=== PATIENT | female | born 1955 | race Caucasian/White ===

== ENCOUNTER 2020-08-02 13:55 | Outpatient (RCR) | payer OTHER, SELFPAY ==
[2020-08-02 14:05] VITALS: BP 118/82
== END 2020-08-30 14:38 | disposition other institution (70) ==
LOC: HO.PT 13:55
PROVIDERS: PCP Internal Medicine; Visit Provider Nurse Practitioner Adult Health
DX: R42 Dizziness and giddiness (principal)
CPT/HCPCS: 97112; 97161

== ENCOUNTER 2020-11-17 07:24 | Day surgery (SDC) | payer OTHER, SELFPAY ==
[2020-11-09 20:36] VITALS: BMI 24.4
--- NOTE | 2020-11-15 14:48 | HO.ANESPROP2 ---
Documented by User: Lacey Troy 11/15/20 14:49 HPI - Anesthesia Eval Consult details Narrative: 65yo F for Colonoscopy [facility] Past Medical History Medical History Asthma Diverticulosis Migraine Surgical History Surgical History H/O foot surgery (~2005) History of colonoscopy (~2014) History of hand surgery (~05/2020) History of total abdominal hysterectomy and bilateral salpingo-oophorectomy History of total knee arthroplasty (~2009) Social History Social History Patient Tobacco Use Status: Never used Tobacco Use of substances other than those prescribed or required for medical reasons: No Are you DNR?: No Advance Directives: No (UNKNOWN) Advance Directives Information Provided: Yes Advance Directives on File: No Nutrition Risks: No Nutritional Risk Patient : No Meds Allergies Allergy/AdvReac Type Severity Reaction Status Date / Time erythromycin base Allergy Intermediate HIVES, RASH Verified 11/17/20 08:01 [ERYTHROMYCIN BASE] Erythrocin Allergy Intermediate Hives Uncoded 11/17/20 08:00 Erythromycin Allergy Intermediate hives Uncoded 11/17/20 08:00 Home Medications Medication Instructions Recorded Confirmed Last Taken Type ibuprofen 1 tab PO BID PRN 11/09/20 11/09/20 Unknown History Exam Exam Date and Time: November 15, 2020 1448 Height,Weight and Vital Signs: Height 5 ft 5 in Weight 66.678 kg Assessment and Plan Assessment Anesthesia Assessment: Chart Reviewed Documented by User: Christina Dennison 11/17/20 08:01 [facility] Past Medical History Medical History Asthma Diverticulosis Migraine Family History Family history of problems with anesthesia: No Surgical History Surgical History H/O foot surgery (~2005) History of colonoscopy (~2014) History of hand surgery (~05/2020) History of total abdominal hysterectomy and bilateral salpingo-oophorectomy History of total knee arthroplasty (~2009) History of Problems with Anesthesia: Yes (PONV) Social History Social History Patient Tobacco Use Status: Never used Tobacco Use of substances other than those prescribed or required for medical reasons: No Are you DNR?: No Advance Directives: No (UNKNOWN) Advance Directives Information Provided: Yes Advance Directives on File: No Nutrition Risks: No Nutritional Risk Patient : No Meds Allergies Allergy/AdvReac Type Severity Reaction Status Date / Time erythromycin base Allergy Intermediate HIVES, RASH Verified 11/17/20 08:01 [ERYTHROMYCIN BASE] Erythrocin Allergy Intermediate Hives Uncoded 11/17/20 08:00 Erythromycin Allergy Intermediate hives Uncoded 11/17/20 08:00 Home Medications Medication Instructions Recorded Confirmed Last Taken Type ibuprofen 1 tab PO BID PRN 11/09/20 11/09/20 Unknown History Exam Height,Weight and Vital Signs: Vital Signs Temp Pulse Resp BP Pulse Ox 11/17/20 07:47 97.3 F 74 18 124/73 97 Airway Mallampati Class: II TM Dist: >3cm Neck ROM: Full Heart: RRR Lungs: CTAB Assessment and Plan Assessment Anesthesia Assessment: Anesthesia Plan Discussed and Chart Reviewed Final Anesthetic Review NPO: Yes ASA Class: II Final Preanesthetic Review: No Changes in Pt Med Stat, Meds/Allgs Chart Reviewed, Consent Obtained/Reviewed and Anes Risks/Benef Reviewed Patient Risk: Low Procedure Risk: Low Assessment/Block/Sedation in SS: Assess/Block/Sedation-SS Anesthetic Plan Anesthetic Plan: MAC: Disposition: Standard PACU
[2020-11-17 07:47] VITALS: BP 124/73; PULSE 74; RESP 18; TEMP 36.3; O2SAT 97
[2020-11-17] MEDS: Lactated Ringers 1,000 ML 100 ML IVCONT (08:02)
--- NOTE | 2020-11-17 08:06 | MHC.SHP ---
Pre-Procedural Eval Section B Chief Complaint: screening Details of Present Illness: see H&P no changes Relevant Family History (Specify if Yes): No Relevant Social History: None Present Medications: see Short Stay Collaborative assessment Medical History: No relevant PMH History of Previous Operations: No relevant previous surgery Allergies: Allergies Allergy/AdvReac Type Severity Reaction Status Date / Time erythromycin base Allergy Intermediate HIVES, RASH Verified 11/17/20 08:01 [ERYTHROMYCIN BASE] Erythrocin Allergy Intermediate Hives Uncoded 11/17/20 08:00 Erythromycin Allergy Intermediate hives Uncoded 11/17/20 08:00 Review of Systems Sugical H&P ROS: Negative: Constitution, Cardiovascular, Respiratory, Neurological, Psychiatric, Hem-Onc, Allergic/Immunologic, Gastrointestinal, Genitourinary, Musculoskeletal, Integumentary, Endocrine and Eyes/Ears/Nose/Throat Exam Surgical H&P Exam: Normal: HEENT, Normal: Heart, Normal: Lungs, Normal: Extremities, Normal: Abdomen, Normal: Skin and Normal: Neurological Plan Diagnosis/Plan: Unchanged I have reviewed the history and physical and performed a pertinent physical examination on my patient. No changes have occurred unless specified.
--- NOTE | 2020-11-17 08:41 | PM.OP ---
Brief Operative Note Date of Service: 11/17/20 Pre-op diagnosis: screening Post-op diagnosis: same Procedure: colonoscopy Surgeon: Frank Suarez Anesthesia: MAC Was an Environmental Designer used for this Procedure?: No Estimated blood loss (mL): 0 Pathology: none sent Condition: stable Disposition: PACU
[2020-11-17 08:44] VITALS: BP 89/42; PULSE 71; RESP 14; TEMP 36.7; O2SAT 98
[2020-11-17 08:59] VITALS: BP 94/57; PULSE 70; RESP 18; O2SAT 99
--- NOTE | 2020-11-17 09:01 | OP_ITS ---
SURGEON: Frank Suarez MD INDICATIONS: Colon cancer screening, personal history of colon polyps, and family history of colon cancer. PREOPERATIVE DIAGNOSIS: POSTOPERATIVE DIAGNOSIS: PROCEDURE PERFORMED: Colonoscopy to the terminal ileum. ESTIMATED BLOOD LOSS: COMPLICATIONS: ANESTHESIA: ASSISTANTS: SPECIMENS: MEDICATIONS: Monitored anesthesia care. DESCRIPTION OF PROCEDURE: The history and physical performed. The risks and benefits of the procedure were explained to the patient. Informed consent was obtained. The patient was placed in the left lateral decubitus position. A digital rectal exam was performed and was found to be normal. The Olympus pediatric video colonoscope was introduced into the rectum and advanced to the cecum without difficulty. The cecum was identified by transillumination, palpation, and identification of ileocecal valve. Examination was performed and the scope was removed. She tolerated the procedure well and was taken to recovery area in stable condition. FINDINGS: The terminal ileum was normal. The visualized colonic mucosa was within normal limits without evidence of masses or ulcers. No polyps were identified. The quality of prep was good. Retroflexed examination showed some small internal hemorrhoids. There was mild sigmoid diverticulosis. IMPRESSION: Normal colonoscopy. RECOMMENDATION: 1. Follow up as needed. 2. Repeat colonoscopy is recommended in 5 years because of family history. MD ALEJANDRA Rodas/ANDREYL / [phone]
[2020-11-17 09:05] VITALS: BP 104/63; PULSE 68; RESP 16; O2SAT 99
== END 2020-11-17 09:33 | disposition home or self-care (01) ==
PROVIDERS: PCP Internal Medicine; Visit Provider Internal Medicine Gastroenterology
PROC: 0DJD8ZZ Inspection of Lower Intestinal Tract, Via Natural or Artificial Opening Endoscopic (ICD-10-PCS; CPT 45378; principal; 2020-11-17 08:20)
DX: Z12.11 Encounter for screening for malignant neoplasm of colon (principal); Z86.010 Personal history of colon polyps; Z80.0 Family history of malignant neoplasm of digestive organs; K57.30 Diverticulosis of large intestine without perforation or abscess without bleeding; K64.8 Other hemorrhoids; J45.909 Unspecified asthma, uncomplicated; Z79.1 Long term (current) use of non-steroidal anti-inflammatories (NSAID); Z88.1 Allergy status to other antibiotic agents
CPT/HCPCS: 45378; J2250

== ENCOUNTER 2021-03-08 09:46 | Outpatient (REF) | payer OTHER, SELFPAY ==
[2021-03-08 11:56] LABS: Alanine Aminotransferase 22 U/L (0-31); Albumin Level 4.5 g/dL (3.5-5.0); Alkaline Phosphatase 69 U/L (39-117); Anion Gap 11 (12-20); Aspartate Amino Transferase 20 U/L (5-31); Bilirubin Total 0.3 mg/dL (0.0-1.0); Blood Urea Nitrogen 13 mg/dL (9-16); Calcium 9.7 mg/dL (8.4-10.2); Carbon Dioxide 28 mmol/L (22-29); Chloride 106 mmol/L (96-108); Cholesterol 169 mg/dL; Estimated Glomerular Filt Rate > 60; Glucose Random 104 mg/dL (60-115); HDL Cholesterol 65 mg/dL; LDL Cholesterol Calculated 94 mg/dl; Sodium 140 mmol/L (135-145); Total Protein 7.2 g/dL (6.5-8.0); Triglycerides 53 mg/dL
== END 2021-03-08 09:47 | disposition home or self-care (01) ==
LOC: HO.HMGCLDS 09:46
PROVIDERS: PCP Internal Medicine; Visit Provider Nurse Practitioner Adult Health
DX: Z00.00 Encounter for general adult medical examination without abnormal findings (principal)
CPT/HCPCS: 36415; 80053; 80061

== ENCOUNTER 2021-05-04 14:06 | Outpatient (REF) | payer OTHER, SELFPAY ==
--- NOTE | ~2021-05-04 | MM_ITS ---
EXAMINATION: MM SCREENING DIGITAL BREAST TOMOSYNTHESIS, BILATERAL CLINICAL INFORMATION: Screening. Asymptomatic. The lifetime risk of breast cancer based on the Tyrer-Cuzick Model is 10%. COMPARISON: Mammography: 05/19/2019, 05/30/2016, 04/25/2015 TECHNIQUE: Digital breast tomosynthesis is performed in both the craniocaudal and mediolateral oblique views along with computer-aided detection (CAD). Synthesized 2D images are generated from the tomosynthesis. FINDINGS: There are scattered areas of fibroglandular density (ACR BI-RADS breast composition Category b). The right breast is unremarkable. There is no interval mass or architectural abnormality. Neither breast shows abnormal calcifications. The skin contours are smooth. There is a clip marker again seen right breast mid upper outer quadrant. Left breast has a 0.4 cm nodule posterior 3:00 position representing change from prior studies. Patient will be recalled to further characterize, possibly an intramammary node. MM/MM tomosynthesis screening BI IMPRESSION: 1. Left: 4 mm nodule posterior 3:00 position. 2. Right: No mammographic evidence of malignancy. ASSESSMENT: BI-RADS 0: Incomplete - Need Additional Imaging Evaluation RECOMMENDATION: 1. Additional views of the left breast (small spot CC, small spot MLO). 2. Targeted ultrasound if warranted after review of the additional views. 3. Radiology department staff will contact the patient for additional imaging. This patient's information was entered into a reminder system with a target due date for their next mammogram.
--- NOTE | ~2021-05-04 | MM_ITS ---
EXAMINATION: BONE DENSITOMETRY CLINICAL INDICATION: Postmenopausal. COMPARISON: None (current study represents initial baseline exam). TECHNIQUE: Using a [employer] DXA System (software version: 13.1) manufactured by [employer], dual-energy x-ray absorptiometry was performed of the lumbar spine and left hip. The images are of good technical quality. Summary results are attached. FINDINGS: AP SPINE L1-L4: BMD 1.131 g/cm2, Z-score 1.2, T-score -0.4, normal. LEFT FEMUR, NECK: BMD 0.902 g/cm2, Z-score 0.5, T-score -1.0, normal. LEFT FEMUR, TOTAL: BMD 0.966 g/cm2, Z-score 0.9, T-score -0.3, normal. IDENTIFIED RISK FACTORS: Low calcium intake, menopause, hysterectomy, bilateral oophorectomy. HISTORY OF FRACTURE: None listed. MEDICATIONS: None listed. MM/XR DEXA axial skeleton IMPRESSION: 1. DIAGNOSIS: Normal bone density based on the lowest T-score value of -1.0 in the femoral neck applying World Health Organization criteria. 2. 10-YEAR FRACTURE RISK PREDICTION, FRAX: Major osteoporotic fracture (clinical spine, forearm, hip or shoulder) 7.9%. Hip fracture 0.6%. 3. Treatment Recommendations: NOF guidelines recommend consideration for treatment in postmenopausal women and men age 50 and older presenting with the following: -A hip or vertebral (clinical or morphometric) fracture. -T-score less than or equal to -2.5 at the femoral neck or spine after appropriate evaluation to exclude secondary causes. -Low bone mass at the hip or spine and a 10-year fracture probability by FRAX of greater than or equal to 3% for hip fracture or greater than or equal to 20% for major osteoporotic fracture based on the [place] adapted WHO algorithm. 4. Other Recommendations: All treatment decisions require clinical judgment and consideration of individual patient factors, including patient preferences, comorbidities, previous drug use, risk factors not captured in the FRAX model (e.g. frailty, falls, vitamin D deficiency, increased bone turnover, interval significant decline in bone density) and possible under or overestimation of fracture risk by FRAX. FUTURE SCAN RECOMMENDATION: People with diagnosed cases of osteoporosis or at high risk for fracture should have regular bone mineral density tests. For patients eligible for Medicare, routine testing is allowed once every 2 years. The testing frequency can be increased to one year for patients who have rapidly progressing disease, those who are receiving or discontinuing medical therapy to restore bone mass, or have additional risk factors.
== END 2021-05-04 14:07 | disposition home or self-care (01) ==
LOC: HO.MAMMO 14:06
PROVIDERS: Visit Provider Internal Medicine
DX: Z12.31 Encounter for screening mammogram for malignant neoplasm of breast (principal); Z13.820 Encounter for screening for osteoporosis; N95.9 Unspecified menopausal and perimenopausal disorder; Z78.0 Asymptomatic menopausal state; Z98.890 Other specified postprocedural states; Z90.710 Acquired absence of both cervix and uterus
CPT/HCPCS: 77063; 77067; 77080

== ENCOUNTER 2021-05-17 12:26 | Outpatient (REF) | payer OTHER, SELFPAY ==
--- NOTE | ~2021-05-17 | MM_ITS ---
EXAMINATION: MM DIAGNOSTIC DIGITAL BREAST TOMOSYNTHESIS, LEFT US DIAGNOSTIC ULTRASOUND BREAST, LEFT CLINICAL INFORMATION: Recall from screening for 4 mm nodule posterior 3:00 position left breast. COMPARISON: Mammography: 05/04/2021, 05/19/2019 TECHNIQUE: Digital breast tomosynthesis is performed. 2D images are generated from the tomosynthesis. The following views are obtained: Spot CC, spot MLO. Ultrasound left breast is targeted to the posterior upper outer quadrant. Grayscale imaging and color Doppler are performed without and with harmonics. FINDINGS: There are scattered areas of fibroglandular density (ACR BI-RADS breast composition Category b). The additional views show the focal nodular asymmetric density to be less conspicuous. There is no spiculation. Ultrasound left breast demonstrates a circumscribed 0.4 x 0.3 cm hypoechoic nodule with suggestion of fine avascular internal septation and trace increased through-transmission of sound. This is believed to represent the finding on mammography. Results are discussed with the patient at time of visit. Management options discussed with patient. The nodular asymmetric density appears circumscribed and likely mildly complicated cyst on ultrasound. Patient is in agreement with short interval follow-up imaging in 6 months. Management plan is for six-month follow-up diagnostic mammography. Targeted left breast ultrasound may also be performed at same visit of warranted. MM/MM tomosynthesis added views L IMPRESSION: Probable benign mildly complicated cyst posterior upper outer left breast. ASSESSMENT: BI-RADS 3: Probably Benign RECOMMENDATION: Diagnostic left mammography in 6 months. This patient's information was entered into a reminder system with a target due date for their next mammogram.
== END 2021-05-17 12:27 | disposition home or self-care (01) ==
LOC: HO.MAMMO 12:26
PROVIDERS: Visit Provider Internal Medicine
DX: N63.25 Unspecified lump in the left breast, overlapping quadrants (principal)
CPT/HCPCS: 76642; 77061; 77065

== ENCOUNTER 2021-07-06 08:00 | Outpatient (REF) | payer OTHER, SELFPAY ==
[2021-07-06 09:58] LABS: Influenza A PCR NEGATIVE (Negative); Influenza B PCR NEGATIVE (Negative); Resp Syncy Virus RNA Qual PCR NEGATIVE (Negative); SARS COV2 PCR INHOUSE NEGATIVE (Negative)
== END 2021-07-06 08:01 | disposition home or self-care (01) ==
LOC: HO.LAB 08:00
PROVIDERS: Visit Provider Internal Medicine
DX: Z20.822 Contact with and (suspected) exposure to COVID-19 (principal)
CPT/HCPCS: 0241U; C9803

== ENCOUNTER → 2021-10-16 10:23 | Outpatient (RCR) | payer OTHER, SELFPAY | END | disposition home or self-care (01) | LOC: HO.OT 06-27 09:49 | PROVIDERS: Visit Provider Orthopaedic Surgery | DX: Z98.890 Other specified postprocedural states (principal) | CPT/HCPCS: 29130; 97014; 97110; 97140; 97165; 97530; 97760 ==

== ENCOUNTER 2022-01-23 13:46 | Outpatient (REF) | payer OTHER, SELFPAY ==
--- NOTE | ~2022-01-23 | MM_ITS ---
EXAMINATION: MM DIAGNOSTIC DIGITAL BREAST TOMOSYNTHESIS, LEFT CLINICAL INFORMATION: Short interval follow-up probable benign nodule posterior 3:00 left breast. The lifetime risk of breast cancer based on the Tyrer-Cuzick Model is 9%. COMPARISON: Mammography: 05/17/2021, 05/04/2021 (BI-RADS 0), 05/19/2019, ultrasound left breast 05/17/2021. TECHNIQUE: Digital breast tomosynthesis is performed in both the craniocaudal and mediolateral oblique views along with computer-aided detection (CAD). Synthesized 2D images are generated from the tomosynthesis. FINDINGS: There are scattered areas of fibroglandular density (ACR BI-RADS breast composition Category b). The nodule posterior 3:00 left breast is decreased in size and no longer clearly visible consistent with the probable benign assessment on prior imaging. Left breast will be reassessed again at time of annual bilateral mammography, due in 6 months. Remainder left breast is unremarkable. No significant changes. Results are provided to the patient at time of visit by the technologist. MM/MM tomosynthesis diagnostic LT IMPRESSION: Nodule posterior outer left breast is decreased in size and no longer clearly visible. ASSESSMENT: BI-RADS 3: Probably Benign RECOMMENDATION: Diagnostic mammography at time of annual bilateral exam, due in 6 months. This patient's information was entered into a reminder system with a target due date for their next mammogram.
== END 2022-01-23 13:47 | disposition home or self-care (01) ==
LOC: HO.MAMMO 13:46
PROVIDERS: Visit Provider Internal Medicine
DX: N63.25 Unspecified lump in the left breast, overlapping quadrants (principal)
CPT/HCPCS: 77061; 77065

== ENCOUNTER 2022-06-04 09:55 | Day surgery (SDC) | payer OTHER, SELFPAY ==
--- NOTE | 2022-06-03 10:27 | HO.ANESPROP2 ---
Documented by User: Lacey Troy NP 06/03/22 10:27 HPI - Anesthesia Eval Consult details Narrative: 66yo F for Upper Endoscopy [facility] [place] Past Medical History Medical History Asthma Diverticulosis Migraine Family History Family history of problems with anesthesia: No Surgical History Surgical History H/O foot surgery (~2005) History of colonoscopy (~2014) History of hand surgery (~05/2020) History of total abdominal hysterectomy and bilateral salpingo-oophorectomy History of total knee arthroplasty (~2009) History of Problems with Anesthesia: Yes (PONV) Social History Social History Patient Tobacco Use Status: Never used Tobacco Are you DNR?: No Advance Directives: No Advance Directives Information Provided: Yes Nutrition Risks: No Nutritional Risk Meds Allergies Allergy/AdvReac Type Severity Reaction Status Date / Time erythromycin base Allergy Intermediate HIVES, RASH Verified 06/04/22 10:24 [ERYTHROMYCIN BASE] Home Medications Medication Instructions Recorded Confirmed Last Taken Type ibuprofen 800 mg tablet 1 tab PO BID PRN Pain 11/09/20 06/04/22 Unknown History Exam Exam Date and Time: June 03, 2022 102 Assessment and Plan Assessment Anesthesia Assessment: Chart Reviewed Final Anesthetic Review Family History of Problems with Anesthesia: No History of Problems with Anesthesia: Yes (PONV) Documented by User: Christina Dennison MD 06/04/22 12:42 [facility] Past Medical History Medical History Asthma Diverticulosis Migraine Surgical History Surgical History H/O foot surgery (~2005) History of colonoscopy (~2014) History of hand surgery (~05/2020) History of total abdominal hysterectomy and bilateral salpingo-oophorectomy History of total knee arthroplasty (~2009) Social History Social History Patient Tobacco Use Status: Never used Tobacco Are you DNR?: No Advance Directives: No Advance Directives Information Provided: Yes Nutrition Risks: No Nutritional Risk Meds Allergies Allergy/AdvReac Type Severity Reaction Status Date / Time erythromycin base Allergy Intermediate HIVES, RASH Verified 06/04/22 10:24 [ERYTHROMYCIN BASE] Home Medications Medication Instructions Recorded Confirmed Last Taken Type ibuprofen 800 mg tablet 1 tab PO BID PRN Pain 11/09/20 06/04/22 Unknown History Exam Height,Weight and Vital Signs: Height 5 ft 5 in Weight 66.678 kg T 97.3 HR74 RR18 BP115/75 Sats 99%(RA) Airway Mallampati Class: II TM Dist: >3cm Neck ROM: Full Loose/Missing/Broken Teeth: No Heart: RRR Lungs: CTAB Assessment and Plan Assessment Anesthesia Assessment: Anesthesia Plan Discussed Final Anesthetic Review NPO: Yes ASA Class: II Final Preanesthetic Review: No Changes in Pt Med Stat, Meds/Allgs Chart Reviewed, Consent Obtained/Reviewed and Anes Risks/Benef Reviewed Patient Risk: Low Procedure Risk: Low Assessment/Block/Sedation in SS: Assess/Block/Sedation-SS Anesthetic Plan Anesthetic Plan: MAC: Disposition: Standard PACU
[2022-06-04 10:14] VITALS: BMI 24.4
[2022-06-04] MEDS: Lactated Ringers 1,000 ML 100 ML IVCONT (10:38)
--- NOTE | 2022-06-04 11:47 | MHC.SHP ---
Pre-Procedural Eval Section A Date of Service: 06/04/22 Section B Chief Complaint: reflux disease Details of Present Illness: see H*P and addendum Relevant Family History (Specify if Yes): No Relevant Social History: None Present Medications: see Short Stay Collaborative assessment Medical History: No relevant PMH History of Previous Operations: No relevant previous surgery Allergies: Allergies Allergy/AdvReac Type Severity Reaction Status Date / Time erythromycin base Allergy Intermediate HIVES, RASH Verified 06/04/22 10:24 [ERYTHROMYCIN BASE] Review of Systems Sugical H&P ROS: Negative: Constitution, Cardiovascular, Respiratory, Neurological, Psychiatric, Hem-Onc, Allergic/Immunologic, Gastrointestinal, Genitourinary, Musculoskeletal, Integumentary, Endocrine and Eyes/Ears/Nose/Throat Exam Surgical H&P Exam: Normal: HEENT, Normal: Heart, Normal: Lungs, Normal: Extremities, Normal: Abdomen, Normal: Skin and Normal: Neurological Plan Diagnosis/Plan: Unchanged I have reviewed the history and physical and performed a pertinent physical examination on my patient. No changes have occurred unless specified. Time Spent With Patient Time: Total time managing care of this patient today ____ minutes.
--- NOTE | 2022-06-04 12:29 | PM.OP ---
Brief Operative Note Date of Service: 06/04/22 Pre-op diagnosis: GERD Post-op diagnosis: same Procedure: EGD Surgeon: Frank Suarez Anesthesia: MAC Was an Virtual Classroom Manager used for this Procedure?: No Estimated blood loss (mL): 5 Pathology: other Condition: stable Disposition: PACU
[2022-06-04 12:31] VITALS: BP 118/94; PULSE 76; RESP 16; TEMP 36.3; O2SAT 98
--- NOTE | 2022-06-04 12:45 | OP_ITS ---
SURGEON: Frank Suarez MD INDICATIONS: Gastroesophageal reflux disease. PREOPERATIVE DIAGNOSIS: POSTOPERATIVE DIAGNOSIS: PROCEDURE PERFORMED: Upper endoscopy with biopsy. ESTIMATED BLOOD LOSS: COMPLICATIONS: ANESTHESIA: Monitored anesthesia care. ASSISTANTS: SPECIMENS: DESCRIPTION OF PROCEDURE: The procedure was performed on 06/04/2022. A history and physical were performed. The risks and benefits of the procedure were explained to the patient. Informed consent was obtained. The patient was placed in the left lateral decubitus position. The Olympus video gastroscope was introduced into the esophagus, stomach, and duodenum. Examination was performed. The scope was removed. She tolerated the procedure well and was returned to the recovery area in stable condition. FINDINGS: Esophagus: The esophagus appeared normal. There was no esophagitis. There was an approximately 4 cm hiatal hernia. Biopsies were obtained from the EG junction. Stomach the stomach showed several less than 5 mm benign-appearing polyps in the body and fundus. Two of these were biopsied. Antral biopsies were also obtained to rule out H pylori. Duodenum: The bulb and second portion were normal. IMPRESSION: 1. Gastroesophageal reflux disease. 2. Gastric polyps. 3. Hiatal hernia. RECOMMENDATION: Follow up the biopsy results. MD ALEJANDRA Rodas/JOSE / [id number]
[2022-06-04 12:46] VITALS: BP 132/86; PULSE 69; RESP 16; TEMP 36.3; O2SAT 97
== END 2022-06-04 13:22 | disposition home or self-care (01) ==
PROVIDERS: PCP Internal Medicine; Visit Provider Internal Medicine Gastroenterology
PROC: 0DJ08ZZ Inspection of Upper Intestinal Tract, Via Natural or Artificial Opening Endoscopic (ICD-10-PCS; CPT 43235; principal; 2022-06-04 11:40)
DX: K21.9 Gastro-esophageal reflux disease without esophagitis (principal); K31.7 Polyp of stomach and duodenum; K44.9 Diaphragmatic hernia without obstruction or gangrene; J45.909 Unspecified asthma, uncomplicated; Z79.1 Long term (current) use of non-steroidal anti-inflammatories (NSAID); Z88.1 Allergy status to other antibiotic agents
CPT/HCPCS: 43239; 88305; 88342; J2250

== ENCOUNTER 2022-07-02 14:39 | Outpatient (REF) | payer MEDICARE, SELFPAY ==
--- NOTE | ~2022-07-02 | MM_ITS ---
EXAMINATION: MM DIAGNOSTIC DIGITAL BREAST TOMOSYNTHESIS, BILATERAL CLINICAL INFORMATION: Due for yearly. Also follow-up probable benign nodule posterior 2:30 left breast. The lifetime risk of breast cancer based on the Tyrer-Cuzick Model is 7%. COMPARISON: Mammography: 01/23/2022, 05/17/2021, 05/04/2021 (BI-RADS 0), 05/19/2019; left breast ultrasound 05/17/2021. TECHNIQUE: Digital breast tomosynthesis is performed in both the craniocaudal and mediolateral oblique views along with computer-aided detection (CAD). Synthesized 2D images are generated from the tomosynthesis. FINDINGS: There are scattered areas of fibroglandular density (ACR BI-RADS breast composition Category b). The small nodule posterior 2:30 left breast for follow-up is decreased in size since initial diagnostic exam 05/17/2021 and without significant change from prior exam 01/23/2022. There is no developing density or architectural abnormality. The remainder of the bilateral breasts show no significant changes from prior studies. No abnormal calcifications. The axilla and skin contours are unremarkable. Results are provided to the patient at time of visit by the technologist. Left breast nodule will be reassessed again at time of next bilateral annual mammography to conclude long-term surveillance. MM/MM tomosynthesis diagnostic BI IMPRESSION: Left: -Tiny nodule for follow-up decreased in size from initial diagnostic exam. No developing density. Right: -No significant changes from prior studies. ASSESSMENT: BI-RADS 3: Probably Benign RECOMMENDATION: Diagnostic mammography at time of next annual exam, due in 12 months. This patient's information was entered into a reminder system with a target due date for their next mammogram.
== END 2022-07-02 14:40 | disposition home or self-care (01) ==
LOC: HO.MAMMO 14:39
PROVIDERS: PCP Internal Medicine; Visit Provider Internal Medicine
DX: R92.8 Other abnormal and inconclusive findings on diagnostic imaging of breast (principal)
CPT/HCPCS: 77062; 77066

== ENCOUNTER 2022-09-10 06:28 | Day surgery (SDC) | payer MEDICARE, SELFPAY ==
--- NOTE | 2022-09-09 13:54 | HO.ANESPROP2 ---
Documented by User: Lacey Troy NP 09/09/22 13:54 HPI - Anesthesia Eval Consult details Narrative: 66yo F for Upper Endoscopy s/p EGD 05/2022 with [facility]ILA Past Medical History Medical History Asthma Diverticulosis Migraine Family History Family history of problems with anesthesia: No Surgical History Surgical History H/O foot surgery (~2005) History of colonoscopy (~2014) History of hand surgery (~05/2020) History of total abdominal hysterectomy and bilateral salpingo-oophorectomy History of total knee arthroplasty (~2009) History of Problems with Anesthesia: Yes (PONV) Social History Social History Patient Tobacco Use Status: Never used Tobacco Use of substances other than those prescribed or required for medical reasons: No Are you DNR?: No Advance Directives: No Advance Directives Information Provided: Yes Meds Allergies Allergy/AdvReac Type Severity Reaction Status Date / Time erythromycin base Allergy Intermediate HIVES, RASH Verified 09/10/22 06:39 [ERYTHROMYCIN BASE] Home Medications Medication Instructions Recorded Confirmed Last Taken Type ibuprofen 800 mg tablet 1 tab PO BID PRN Pain 11/09/20 09/10/22 Unknown History albuterol sulfate 90 mcg/actuation 2 puff inhalation Q6H PRN wheezing 09/10/22 09/10/22 Unknown History aerosol inhaler omeprazole 20 mg capsule,delayed 20 mg PO QAM 09/10/22 09/10/22 08/20/22 History release Exam Exam Date and Time: September 09, 2022 1354 Assessment and Plan Assessment Anesthesia Assessment: Chart Reviewed Final Anesthetic Review Family History of Problems with Anesthesia: No History of Problems with Anesthesia: Yes (PONV) Documented by User: Christina Dennison MD 09/10/22 07:49 PMF Past Medical History Medical History Asthma Diverticulosis Migraine Surgical History Surgical History H/O foot surgery (~2005) History of colonoscopy (~2014) History of hand surgery (~05/2020) History of total abdominal hysterectomy and bilateral salpingo-oophorectomy History of total knee arthroplasty (~2009) Social History Social History Patient Tobacco Use Status: Never used Tobacco Use of substances other than those prescribed or required for medical reasons: No Are you DNR?: No Advance Directives: No Advance Directives Information Provided: Yes Meds Allergies Allergy/AdvReac Type Severity Reaction Status Date / Time erythromycin base Allergy Intermediate HIVES, RASH Verified 09/10/22 06:39 [ERYTHROMYCIN BASE] Home Medications Medication Instructions Recorded Confirmed Last Taken Type ibuprofen 800 mg tablet 1 tab PO BID PRN Pain 11/09/20 09/10/22 Unknown History albuterol sulfate 90 mcg/actuation 2 puff inhalation Q6H PRN wheezing 09/10/22 09/10/22 Unknown History aerosol inhaler omeprazole 20 mg capsule,delayed 20 mg PO QAM 09/10/22 09/10/22 08/20/22 History release Exam Height,Weight and Vital Signs: Height 5 ft 5 in Weight 68.039 kg Vital Signs Temp Pulse Resp BP Pulse Ox O2 Del Method 09/10/22 06:52 97.6 F 76 16 116/82 98 Room Air Airway Mallampati Class: II TM Dist: >3cm Neck ROM: Full Loose/Missing/Broken Teeth: No ([place] top left intact. Denies broken, loose, missing teeth) Heart: RRR Lungs: CTAB Assessment and Plan Assessment Anesthesia Assessment: Anesthesia Plan Discussed Final Anesthetic Review NPO: Yes ASA Class: II Final Preanesthetic Review: No Changes in Pt Med Stat, Meds/Allgs Chart Reviewed, Consent Obtained/Reviewed and Anes Risks/Benef Reviewed Patient Risk: Low Procedure Risk: Low Assessment/Block/Sedation in SS: Assess/Block/Sedation-SS Anesthetic Plan Anesthetic Plan: MAC: Disposition: Standard PACU
[2022-09-10 06:41] VITALS: BMI 25.0
[2022-09-10 06:52] VITALS: BP 116/82; PULSE 76; RESP 16; TEMP 36.4; O2SAT 98
[2022-09-10] MEDS: Lactated Ringers 1,000 ML 100 ML IVCONT (07:04)
[2022-09-10 07:57] VITALS: BP 106/69; PULSE 77; RESP 16; TEMP 36.2; O2SAT 95
[2022-09-10 08:12] VITALS: BP 116/70; PULSE 75; RESP 18; TEMP 36.1; O2SAT 97
--- NOTE | 2022-09-10 08:13 | P.BOP_ITS ---
Brief Operative Note Date of Service: 09/10/22 Pre-op diagnosis: gim Post-op diagnosis: same Procedure: egd Surgeon: Frank Suarez Anesthesia: MAC Was an Patient Financial Specialist used for this Procedure?: No Estimated blood loss (mL): 2 Pathology: other Condition: stable Disposition: PACU
--- NOTE | 2022-09-10 08:13 | MHC.SHP ---
Pre-Procedural Eval Section A Date of Service: 09/10/22 Section B Chief Complaint: Gastric intestinal metaplasia, unspecified Details of Present Illness: see H*P no changes Relevant Social History: None Present Medications: see Short Stay Collaborative assessment Medical History: No relevant PMH Allergies: Allergies Allergy/AdvReac Type Severity Reaction Status Date / Time erythromycin base Allergy Intermediate HIVES, RASH Verified 09/10/22 06:39 [ERYTHROMYCIN BASE] Review of Systems Sugical H&P ROS: Negative: Constitution, Cardiovascular, Respiratory, Neurological, Psychiatric, Hem-Onc, Allergic/Immunologic, Gastrointestinal, Genitourinary, Musculoskeletal, Integumentary, Endocrine and Eyes/Ears/Nose/Throat Exam Surgical H&P Exam: Normal: HEENT, Normal: Heart, Normal: Lungs, Normal: Extremities, Normal: Abdomen, Normal: Skin and Normal: Neurological Plan Diagnosis/Plan: Unchanged I have reviewed the history and physical and performed a pertinent physical examination on my patient. No changes have occurred unless specified. Time Spent With Patient Time: Total time managing care of this patient today ____ minutes.
--- NOTE | 2022-09-10 08:25 | OP_ITS ---
DATE OF SERVICE: 09/10/2022 SURGEON: Frank Suarez MD INDICATIONS: Gastric intestinal metaplasia. PREOPERATIVE DIAGNOSIS: POSTOPERATIVE DIAGNOSIS: PROCEDURE PERFORMED: Upper endoscopy with biopsy. ESTIMATED BLOOD LOSS: COMPLICATIONS: ANESTHESIA: Monitored anesthesia care. ASSISTANTS: SPECIMENS: DESCRIPTION OF PROCEDURE: A history and physical were performed. The risks and benefits of the procedure were explained to the patient. Informed consent was obtained. The patient was placed in the left lateral decubitus position. The Olympus video gastroscope was introduced into the esophagus, stomach, and duodenum. Examination was performed. The scope was removed. She tolerated the procedure well and was returned to recovery in stable condition. FINDINGS: Esophagus: The esophagus was normal. Stomach: The stomach showed no evidence of masses or ulcers. Biopsies were obtained throughout the stomach to assess for degree of gastric intestinal metaplasia. There was no ulcer or erythema. Duodenum: The bulb and 2nd portion were normal. IMPRESSION: Gastric intestinal metaplasia. RECOMMENDATION: Follow up the biopsy results. MD ALEJANDRA Rodas/ANDREYL / [id number]
== END 2022-09-10 08:49 | disposition home or self-care (01) ==
PROVIDERS: PCP Internal Medicine; Visit Provider Internal Medicine Gastroenterology
PROC: 0DJ08ZZ Inspection of Upper Intestinal Tract, Via Natural or Artificial Opening Endoscopic (ICD-10-PCS; CPT 43235; principal; 2022-09-10 07:30)
DX: K29.50 Unspecified chronic gastritis without bleeding (principal); K31.A0 Gastric intestinal metaplasia, unspecified; Z80.0 Family history of malignant neoplasm of digestive organs; J45.909 Unspecified asthma, uncomplicated; G43.909 Migraine, unspecified, not intractable, without status migrainosus; Z79.1 Long term (current) use of non-steroidal anti-inflammatories (NSAID); Z88.1 Allergy status to other antibiotic agents
CPT/HCPCS: 43239; 88305; 88342; J2250

== ENCOUNTER 2023-08-19 11:11 | Outpatient (REF) | payer MEDICARE, SELFPAY ==
--- NOTE | ~2023-08-19 | MM_ITS ---
EXAMINATION: MM DIAGNOSTIC DIGITAL BREAST TOMOSYNTHESIS, BILATERAL CLINICAL INFORMATION: Patient due for screening bilaterally. Short interval follow-up probably benign nodule posterior 3:00 left breast. COMPARISON: Mammography: 07/02/2022, 01/23/2022, 05/17/2021, 05/04/2021 (BI-RADS 0), 05/19/2019; left breast ultrasound 05/17/2021. TECHNIQUE: Digital breast tomosynthesis is performed in both the craniocaudal and mediolateral oblique views along with computer-aided detection (CAD). Synthesized 2D images are generated from the tomosynthesis. In addition to standard views, a full-field left 90 degree 3-D mediolateral view was also obtained. FINDINGS: There are scattered areas of fibroglandular density (ACR BI-RADS breast composition Category b). There is a surgical clip in the right breast upper outer quadrant middle one third, benign. There is a benign-appearing lymph node in the right axillary tail. The tiny 3 mm nodule in the 3:00 axis of the left breast is even less conspicuous than previously in 2022, correlating with a minimally complicated cyst seen on prior ultrasound of 2020. This finding has been stable over 2 years and is considered benign. There are no suspicious masses, suspicious grouped calcifications, or areas of architectural distortion in either breast. The parenchymal pattern is stable from prior exams. No axillary or skin findings are noted. MM/MM tomosynthesis diagnostic BI IMPRESSION: There are no findings suspicious for malignancy in either breast. There are stable benign findings, including the 3 mm left breast nodule at 3:00. Recommend the patient resume routine annual screening to include both breasts. ASSESSMENT: BI-RADS BI-RADS 2 - Benign Findings RECOMMENDATION: 1 year F/U Results were provided to the patient at time of visit by the technologist. This patient's information was entered into a reminder system with a target due date for their next mammogram.
== END 2023-08-19 11:12 | disposition home or self-care (01) ==
LOC: HO.MAMMO 11:11
PROVIDERS: PCP Internal Medicine; Visit Provider Nurse Practitioner Adult Health
DX: R92.8 Other abnormal and inconclusive findings on diagnostic imaging of breast (principal)
CPT/HCPCS: 77062; 77066

== ENCOUNTER → 2023-08-19 11:30 | Outpatient (BNV) | payer MEDICARE, SELFPAY | PROVIDERS: PCP Internal Medicine; Visit Provider Radiology Diagnostic Radiology | DX: R92.8 Other abnormal and inconclusive findings on diagnostic imaging of breast (principal) | CPT/HCPCS: 77066; G0279 ==

== ENCOUNTER 2023-10-24 10:52 | Outpatient (AMB) | payer MEDICARE, SELFPAY ==
--- NOTE | 2023-10-24 11:10 | A.OFFVIS_ITS ---
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 She exercise on a regular basis. She comes here because she has been noticing symptoms of palpitations which she has correlated with PVCs on her smart watch EKG. She says she has been doing well for many years and has no significant cardiovascular risk factors would feel occasional palpitation here in there. However over the last 6 months she has been noticing more symptoms of palpitations and with frequent palpitation she gets symptoms of dizziness/lightheadedness. She has not had a syncopal episode. However she says she notices the symptoms when they are frequent PVCs especially bigeminal or trigeminal pattern and/or short runs. She comes in today. She does not report any recent changes in his health. Denies any recent exertional symptoms of chest pain or shortness of breath. Denies any other heart failure symptoms. She has not had any syncopal episodes. She has had no change in her lifestyle. She denies any increased stress in her life. She says she remains very symptomatic and these symptoms come in clusters. Some days she does not have any of these symptoms. [facility] Medical History Diverticulosis Asthma Migraine Surgical History H/O foot surgery (~2005) History of colonoscopy (~2014) History of total abdominal hysterectomy and bilateral salpingo-oophorectomy History of hand surgery (~05/2020) History of total knee arthroplasty (~2009) Family History Father CAD (coronary artery disease) Mother No problems noted. Social History Patient Tobacco Use Status: Never used Tobacco Review of Systems Const Denies chills, Denies daytime sleepiness, Denies fatigue, Denies fever(s), Denies frequent falls, Denies poor appetite, Denies snoring, Denies stops breathing during sleep, Denies weakness, Denies weight gain and Denies weight loss Eyes Denies loss of vision ENT Denies dizziness and Denies hearing loss Card Denies chest pain, Denies claudication, Denies leg edema, Denies lightheadedness, Denies palpitations, Denies dyspnea, Denies dyspnea on exertion and Denies orthopnea Resp Denies cough, Denies excessive phlegm production, Denies dyspnea, Denies dyspnea on exertion, Denies snoring and Denies wheezing GI Denies abdominal pain, Denies hematochezia, Denies change in bowel habits, Denies nausea and Denies vomiting Denies urinary frequency and Denies dysuria Musc Denies arthralgias, Denies muscle weakness, Denies numbness and Denies other (frequent falls) Skin/Breast Denies nail changes and Denies rash Neuro Denies Abnormal speech present, Denies dizziness, Denies frequent falls, Denies loss of vision, Denies memory loss, Denies numbness and Denies weakness Psych Denies depression and Denies memory loss Endo Denies fatigue and Denies palpitations Cesar/Lymph Reports easy bruising and Reports other (anemia) Aller/Immun Denies wheezing Physical Exam Vital Signs: Last Vital Signs Pulse 70 10/24/23 11:11 BP 110/76 10/24/23 11:11 BMI result Body Mass Index 24.9 Const General: cooperative, comfortable, no acute distress, well developed, alert, awake, Physically active and well groomed Nutritional Appearance: well nourished and thin Orientation/consciousness: patient oriented x3 Limitations: no limitations HEENT Head: Yes normocephalic and Yes atraumatic Neck Neck: Yes trachea midline, Yes supple and Yes no JVD Resp Effort & Inspection: normal respiratory effort Auscultation: clear to auscultation bilaterally Cardio Jugular venous distension: no JVD Palpation: normal PMI Rate: regular rate Rhythm: regular rhythm Heart sounds: S1 normal heart sound present, S2 normal heart sound present, no click, no gallops, no murmurs and no rubs GI Auscultation: normal bowel sounds Skin General skin exam: no rashes or lesions noted Neuro General: patient oriented x3 and no focal motor deficits Speech: No Abnormal speech present Extrem General: Yes no clubbing, cyanosis or edema Psych Appearance: grossly normal Office Procedures EKG Details: EKG shows normal sinus rhythm with occasional PVCs which are unifocal with right bundle morphology and inferior axis, without any other abnormalities [id number], Complete Assessment & Plan Assessment & Plan (1) PVCs (premature ventricular contractions): Code(s): I49.3 - Ventricular premature depolarization Category: Medical Plan: Highly symptomatic PVCs which as per have occurred in couplets or triplets. She is very symptomatic when she gets them frequently with symptoms of lightheadedness. She has no obvious new symptoms that are concerning at this point time. Source of PVCs unclear although based on EKG appears to be unifocal on today's EKG. Would like to perform further testing to rule out structural heart disease given her age. Would suggest a stress echocardiogram to evaluate for myocardial ischemia and echocardiogram to evaluate for cardiomyopathy and/or other cardiac abnormalities. Also obtain a 14 day Holter monitor to assess for frequency of PVCs and if there any suggestion of multiform PVCs. Further treatment based on finding. Given highly symptomatic nature of her PVCs have advised her to start on metoprolol 25 mg daily. Avoidance of stimulants was discussed. Follow up in the clinic in 4-6 weeks time, sooner p.r.n.. Thank you for allowing me to partake in her care Orders: Orders CA echo transthoracic complete Today I49.3 - Ventricular premature depolarization CA echo stress exercise Today I49.3 - Ventricular premature depolarization ECG 14 day holter monitor Today I49.3 - Ventricular premature depolarization Medications: New metoprolol succinate ER (Toprol XL) 25 mg PO DAILY 30 tabs 5RF Coding Level of Care Code New Pt Level 4 (68924) Diagnoses PVCs (premature ventricular contractions) I49.3 CPT Codes EKG - CPT: 18436-[id number], Complete ([id number])
[2023-10-24 11:11] VITALS: BP 110/76; PULSE 70; BMI 24.9
== END 2023-10-24 11:45 | disposition home or self-care (01) ==
PROVIDERS: PCP Internal Medicine; Visit Provider Internal Medicine Cardiovascular Disease
DX: I49.3 Ventricular premature depolarization (principal)
CPT/HCPCS: 93010; 99204

== ENCOUNTER → 2023-10-24 10:52 | Outpatient (BNVA) | payer MEDICARE, SELFPAY | PROVIDERS: PCP Internal Medicine; Visit Provider Internal Medicine Cardiovascular Disease | DX: I49.3 Ventricular premature depolarization (principal) | CPT/HCPCS: 93005; 99202 ==

== ENCOUNTER 2023-11-09 12:11 | Emergency (ER) | payer MEDICARE, SELFPAY ==
--- NOTE | 2023-11-09 12:17 | ECG_ITS ---
Test Reason : PALPITATIONS Blood Pressure : / mmHG Vent. Rate : 076 BPM Atrial Rate : 076 BPM P-R Int : 176 ms QRS Dur : 082 ms QT Int : 376 ms P-R-T Axes : 050 -14 043 degrees QTc Int : 423 ms Sinus rhythm with occasional Premature ventricular complexes Septal infarct , age undetermined Abnormal ECG No previous ECGs available Referred By: Clarke Gentile Electronically Signed By:Kb Mays
[2023-11-09 12:44] VITALS: BP 145/89; PULSE 74; RESP 18; TEMP 37.2; O2SAT 100; BMI 24.2
--- NOTE | 2023-11-09 12:46 | ED_ITS ---
HPI - General Adult General Chief complaint: Arrhythmia/Palpitations Stated complaint: Heart palpitations, lightheaded Time Seen by Provider: 11/09/23 13:35 Source: patient Mode of arrival: ambulatory History of Present Illness ED Provider: Dr Marie HPI narrative: 68-year-old female with history of vertigo but has had no difficulties in quite a while, recently started on Lopressor succinate 25 mg which she takes at night for PVCs, patient states that she woke up this morning felt very lightheaded and dizzy but that it passed and then experienced lightheadedness and dizziness once again that occurred while she was combing her hair that required her to sit down before she passed out . Patient reports that she has a scheduled placement for Holter monitor and echocardiogram this and a subsequent stress echo thereafter. Related Data Home Medications ?Medication ?Instructions ?Recorded ?Confirmed ibuprofen 800 mg tablet 1 tab PO BID PRN Pain 11/09/20 10/24/23 albuterol sulfate 90 mcg/actuation 2 puff inhalation Q6H PRN wheezing 09/10/22 10/24/23 aerosol inhaler Previous Rx's ?Medication ?Instructions ?Recorded metoprolol tartrate 25 mg tablet 12.5 mg (1/2 x 25 mg) PO BID #14 11/09/23 tabs Allergies Allergy/AdvReac Type Severity Reaction Status Date / Time erythromycin base Allergy Intermediate HIVES, RASH Verified 11/09/23 12:48 [ERYTHROMYCIN BASE] Review of Systems 2 Review of Systems: Pertinent positives and negatives as stated in HPI [facility] Past Medical History Source: nursing notes reviewed Medical History Diverticulosis Asthma Migraine Surgical History H/O foot surgery (~2005) History of colonoscopy (~2014) History of total abdominal hysterectomy and bilateral salpingo-oophorectomy History of hand surgery (~05/2020) History of total knee arthroplasty (~2009) Family History Family History Father CAD (coronary artery disease) Mother No problems noted. Social History Social History Alcohol intake: current Alcohol intake frequency: holidays/special occasions only Patient Tobacco Use Status: Never used Tobacco Smoked in Last 30 Days: No Use of substances other than those prescribed or required for medical reasons: No Advance Directives: Yes Advance Directives Information Provided: Yes Advance Directives on File: No Do you have a plan to hurt others: No Plan Physical Exam ED Vital Signs: Vital Signs - 24 hr 11/09/23 12:44 11/09/23 13:54 11/09/23 13:54 Temperature 98.9 F Pulse Rate 74 67 74 Respiratory Rate 18 Blood Pressure 145/89 H 137/110 H 129/82 Pulse Oximetry 100 Oxygen Delivery Method Room Air 11/09/23 13:55 Temperature Pulse Rate 67 Respiratory Rate Blood Pressure 134/80 Pulse Oximetry Oxygen Delivery Method BMI result Body Mass Index 24.2 VITAL SIGNS: Reviewed. GENERAL: Well developed, well nourished, in no acute distress. HEAD: Normocephalic/atraumatic EYES: PERRLA, EOMI LUNGS: Normal breath sounds. No adventitious sounds or accessory muscle use. SpO2<100> CARDIOVASCULAR: Regular rate and rhythm without noted murmurs, no JVD or lower extremity edema. ABDOMEN: Soft, non-tender, non-distended with bowel sounds. MUSCULOSKELETAL: No tenderness, deformities, or effusions noted on gross inspection. EXTREMITIES: No cyanosis, clubbing or edema. SKIN: Inspection of the skin reveals no rashes NEUROLOGIC: Alert and oriented x 4. Strength and sensation to light touch were grossly intact x 4. Course Course Course Narrative: RME- 68 year old female presents for evaluation of palpitations, lightheadedness and near syncope. Symptoms started this morning. She follows with Dr Rocha and was recently started on Metoprolol. She is scheduled for a holter monitor and echo. EKG is sinus rhythm. Medical Decision Making Medical Decision Making MDM Narrative: 68-year-old female with history and clinical presentation, DDX: Will evaluate palpitations and dizziness for etiology of infection/electrolyte or arrhythmia. I reviewed all investigations and hematologic indices are negative for leukocytosis/anemia/thrombocytopenia. Coagulation studies are within normal limits. Chemistry indices are negative for COLTON/electrolyte or liver enzyme derangements and high sensitivity troponin is noted be undetectable without acute changes on EKG. Orthostatics are negative. I had an extensive conversation with patient regarding adequate fluid hydration and patient has good follow-up. Suspect that Lopressor needs to be decreased and will transition patient from succinate to tartrate at 12.5 mg, prescription will be sent to the [facility]. Differential Diagnosis Differential Diagnoses: The differential diagnosis associated with the presentation includes Please see the discussion above Admission/Observation Consideration of admission/observation: Escalation of care including admission/observation considered Please see the discussion above Lab Data MDM Lab Attestation statement: I reviewed the patient's lab results. Please see the discussion above 11/09/23 12:33 11/09/23 12:33 Labs: Lab Results 11/09/23 Range/Units 12:33 WBC 4.0 L (4.8-10.8) X10*3/uL RBC 4.67 (4.20-5.50) X10*6/uL Hgb 13.9 (12.0-16.0) g/dl Hct 41.6 (37.0-47.0) % MCV 89.1 (80.0-98.0) fL MCH 29.8 (27.0-33.0) pg MCHC 33.4 (31.0-35.0) g/dl RDW 13.9 (11.0-16.0) % Plt Count 262 (160-400) X10*3/uL MPV 9.2 L (9.4-12.3) fL Immature Gran % (Auto) 0.3 (0.0-0.4) % Neut % (Auto) 48.7 (45-73) % Lymph % (Auto) 40.6 H (20-40) % Webster % (Auto) 8.8 (2-11) % Eos % (Auto) 0.8 (0-4) % Baso % (Auto) 0.8 (0-2) % Lymph # (Auto) 1.6 (1.2-4.9) X10*3/uL Webster # (Auto) 0.4 (0.1-1.2) X10*3/uL Eos # (Auto) 0.0 (0.0-0.4) X10*3/uL Baso # (Auto) 0.0 (0.0-0.2) X10*3/uL Abs Immat Gran (auto) 0.01 (0.00-0.03) X10*3/uL Absolute Neuts (auto) 1.9 L (2.0-8.3) x10*3/uL Absolute Nucleated RBC 0.000 (0.0-0.012) X10*3/uL Nucleated RBC % (auto) 0.0 (0.0-0.2) /100WBC PT 11.0 L (11.1-13.3) SEC INR 0.9 (0.9-1.1) Sodium 141 (135-145) mmol/L Potassium 3.8 (3.3-5.1) mmol/L Chloride 107 (96-108) mmol/L Carbon Dioxide 25 (22-29) mmol/L Anion Gap 13 (12-20) BUN 16 (9-16) mg/dL Creatinine 0.77 (0.5-1.4) mg/dL Estim Creat Clear Calc 62.9 Estimated GFR > 60 Random Glucose 111 (60-115) mg/dL Calcium 10.3 H D (8.4-10.2) mg/dL Magnesium 2.0 (1.6-2.6) mg/dL Total Bilirubin 0.4 (0.0-1.0) mg/dL AST 19 (5-31) U/L ALT 25 (0-31) U/L Alkaline Phosphatase 79 (39-117) U/L Troponin I High Sens < 2.7 (<3.5-17.0) ng/L Total Protein 7.8 (6.5-8.0) g/dL Albumin 4.5 (3.5-5.0) g/dL Lipase 21 (8-78) U/L Independent Interpretation I performed an independent interpretation of an: EKG Interpretation: Sinus rhythm with PVCs, HR-76, no STEMI, WV/QRS/QTC is within normal limits. Radiology Impression Discussion of test interpretation with radiology: I have reviewed the radiologist's reading. External Record Review External record reviewed: Outpatient record and Prior outpatient labs Critical Care Time Critical Care Time Critical Care Time: Yes Total Critical Care Time: 30 Attestation: I personally attest to this time spent taking care of the patient. Discharge Plan Discharge Clinical Impression: PVCs (premature ventricular contractions), Palpitations, Light-headedness Patient Disposition: Home, Self-Care Instructions: Heart Palpitations (ED), Lightheadedness (ED) Additional Instructions: STOP taking metoprolol succinate and start taking metoprolol tartrate 12.5 mg this evening, but you will take it twice a day. Please keep your scheduled appointments with Cardiology and do not hesitate to return for any worsening of symptoms. Prescriptions: New metoprolol tartrate 25 mg tablet 12.5 mg PO BID Qty: 14 0RF Discontinued metoprolol succinate [Toprol XL] 25 mg tablet extended release 24 hr 25 mg PO DAILY Qty: 30 5RF No Action ibuprofen 800 mg tablet 1 tab PO BID PRN (Reason: Pain) albuterol sulfate 90 mcg/actuation HFA aerosol inhaler 2 puff INHALATION Q6H PRN (Reason: wheezing) Referrals: Quintin Dickson MD [Primary Care Provider] - Nino Rocha MD [Physician] - Print Language: Tamazight
[2023-11-09 13:01] LABS: MANUAL DIFF FLAG NO
[2023-11-09 13:02] LABS: Basophils Percent Auto 0.8 % (0-2); Eosinophils Percent Auto 0.8 % (0-4); Hematocrit 41.6 % (37.0-47.0); Hemoglobin 13.9 g/dl (12.0-16.0); Imm Gran Abs Auto 0.01 X10*3/uL (0.00-0.03); Imm Gran Pct Auto 0.3 % (0.0-0.4); Lymphocytes Absolute Auto 1.6 X10*3/uL (1.2-4.9); Lymphocytes Percent Auto 40.6 % (20-40); Mean Corpuscular HGB Conc 33.4 g/dl (31.0-35.0); Mean Corpuscular Hemoglobin 29.8 pg (27.0-33.0); Mean Corpuscular Volume 89.1 fL (80.0-98.0); Mean Platelet Volume 9.2 fL (9.4-12.3); Monocytes Absolute Auto 0.4 X10*3/uL (0.1-1.2); Monocytes Percent Auto 8.8 % (2-11); Neutrophils Absolute Auto 1.9 x10*3/uL (2.0-8.3); Neutrophils Percent Auto 48.7 % (45-73); Platelet Count 262 X10*3/uL (160-400); Red Blood Count 4.67 X10*6/uL (4.20-5.50); Red Cell Distribution Width 13.9 % (11.0-16.0)
[2023-11-09 13:07] LABS: INTERNATIONAL NORM RATIO 0.9 (0.9-1.1)
[2023-11-09 13:21] LABS: Alanine Aminotransferase 25 U/L (0-31); Albumin Level 4.5 g/dL (3.5-5.0); Alkaline Phosphatase 79 U/L (39-117); Anion Gap 13 (12-20); Aspartate Amino Transferase 19 U/L (5-31); Bilirubin Total 0.4 mg/dL (0.0-1.0); Blood Urea Nitrogen 16 mg/dL (9-16); Calcium 10.3 mg/dL (8.4-10.2); Carbon Dioxide 25 mmol/L (22-29); Chloride 107 mmol/L (96-108); Creatinine Clr Calc Pharmacy 62.9; Estimated Glomerular Filt Rate > 60; Glucose Random 111 mg/dL (60-115); Lipase 21 U/L (8-78); Potassium 3.8 mmol/L (3.3-5.1); Sodium 141 mmol/L (135-145); Total Protein 7.8 g/dL (6.5-8.0)
[2023-11-09 13:26] LABS: Troponin-I High Sensitivity < 2.7 ng/L (<3.5-17.0)
[2023-11-09 13:54] VITALS: BP 129/82; BP 137/110; PULSE 67; PULSE 74
[2023-11-09 13:55] VITALS: BP 134/80; PULSE 67
--- NOTE | 2023-11-09 13:55 | MHC.EDTECH ---
Orthostatic vitals documented
--- NOTE | 2023-11-09 14:43 | PC.NURSE ---
a&ox4. vss and up to date. 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 pt presents to the ED from home d/t feeling sob/dizzy/palpitations x this am. pt denies chest pain. pt has a cardiac hx - scheduled echocardiogram/holter monitoring in 2 weeks. pt currently denies chest pain. pt states sx are intermittent. not induced by anything specific. no sob/wob noted by this RN. respirations even and unlabored. pt waiting to be seen by ED provider. plan of care ongoing. call martell placed within reach.
[2023-11-09 16:20] VITALS: BP 127/76; PULSE 74; RESP 11; O2SAT 97
[2023-11-09 16:42] VITALS: BP 127/76; PULSE 74; RESP 11; TEMP 37.2; O2SAT 97
== END 2023-11-09 16:42 | disposition home or self-care (01) ==
PROVIDERS: Physician Assistant; Emergency Provider Student in an Organized Health Care Education/Training Program; PCP Internal Medicine
DX: R00.2 Palpitations (principal); I49.3 Ventricular premature depolarization; R42 Dizziness and giddiness; J45.909 Unspecified asthma, uncomplicated; Z79.899 Other long term (current) drug therapy
CPT/HCPCS: 36415; 80053; 83690; 83735; 84484; 85025; 85610; 93005; 99283; 99285

== ENCOUNTER → 2023-11-09 12:17 | Outpatient (BNV) | payer MEDICARE, SELFPAY | PROVIDERS: Emergency Provider Student in an Organized Health Care Education/Training Program; PCP Internal Medicine; Visit Provider Internal Medicine Cardiovascular Disease | DX: R94.31 Abnormal electrocardiogram [ECG] [EKG] (principal) | CPT/HCPCS: 93010 ==

== ENCOUNTER → 2023-11-13 09:52 | Outpatient (REF) | payer MEDICARE, SELFPAY ==
--- NOTE | 2023-11-13 09:56 | CA_ITS ---
Transthoracic Echocardiogram Patient (Last, First, Middle): Martha Escobar G Gender: Female Date of : 1955 Age: 68 Procedure Date: 11/13/2023 Procedure Type: Transthoracic Echocardiogram Location: OP Height: 165.1 cm Weight: 68.04 kg BSA: 1.75 m2 Heart Rate: 56 bpm BP: 118 / 68 mmHg Insurance Claims Specialist: KEN Referring MD: Nino Rocha MD Symptoms: I49.3 - Ventricular premature depolarization Study Quality: Adequate ECG Rhythm: Bradycardia Conclusions: - The left ventricular systolic function is low normal. The visually estimated ejection fraction is between 50-55%. - No obvious valvular pathology seen on this study. Findings Left Ventricle Normal left ventricular cavity size. There is normal left ventricular wall thickness. The left ventricular systolic function is low normal. The visually estimated ejection fraction is between 50-55%. There is no evidence of regional wall motion abnormalities. Diastolic function is normal for age. LV peak GLS -13.6%. Right Ventricle The right ventricle was not well visualized. Normal right ventricular cavity size. Atria Both atria are normal in size. Aortic Valve There is a normal trileaflet aortic valve. There is no aortic valve stenosis. There is no aortic valve regurgitation. Mitral Valve The mitral valve appears normal. There is no mitral valve regurgitation. There is no mitral valve stenosis. Pulmonic Valve The pulmonic valve is likely normal. Tricuspid Valve Normal tricuspid valve structure. There is trace tricuspid valve regurgitation. There is no evidence of pulmonary hypertension. Great Vessels The aortic annulus, asc aorta, and aortic arch are normal in size. Venous The inferior vena cava is normal in size and collapses greater than 50% with inspiration. Pericardium/Pleural There is no evidence of pericardial effusion. Prior Study Comparison No prior study available for comparison. Recommendations, Care & Conclusions No obvious valvular pathology seen on this study. Measurements 2D Linear Measurements IVSd: 0.92 0.6-0.9/0.6-1.0 cm LVIDd: 4.32 3.9-5.3/4.2-5.9 cm LVIDd Index: 2.47 2.4-3.2/2.2-3.1 cm/m2 LVIDs: 3.07 2.0-3.6 cm LVPWd: 0.86 0.7-1.1 cm LA Diam: 3.20 2.7-3.8/3.0-4.0 cm LAIDs Index: 1.83 1.5-2.3 cm/m2 LV Mass: 152.79 67-162/88-224 g LV Mass Index: 87.31 43-95/49-115 g/m2 LVOT Diam: 2.20 3.0+(-)1.3 cm 2D Systolic Function EF 4C: 53.60 >55% Mitral Valve MV Pk E: 0.63 MV PK A: 0.71 MV Decel Time: 211.00 E/A: 0.90 E'Lateral: 5.22 E'Medial: 5.87 E/E' Med: 10.80 E/E' Lat: 12.10 PHT: 62.00 MVA PHT: 3.55 Decel Coke: 3.01 Aortic Valve AoV Pk Lonny: 1.05 AoV Pk Grad: 4.00 SMITH: 2.68 LVOT LVOT Pk Lonny: 0.78 LVOT Mn Lonny: 0.53 LVOT VTI: 0.17 LVOT Pk Grad: 2.00 LVOT Mn Grad: 1.00 LVOT Diam: 2.20 LVOT Area: 3.80 Diastolic Function MV Pk E: 0.63 MV Pk A: 0.71 E/A: 0.90 E'Medial: 5.87 E/E' Med: 10.80 E' Laterial: 5.22 E/E' Lat: 12.10 Tricuspid Valve TR Pk Lonny: 1.78 TR Pk Grad: 13.00 RA Press: 3.00 RVSP: 16.00 Great Vessels Aorta Sinus of Valsalva: 3.40 2.0-3.5 cm Ao Asc: 3.10 2.1-3.4 cm Ao Arch: 2.50 Pulmonary Veins Pulm Vein S/D 1.30 Pulmonary Valve PV Pk Lonny: 0.70 Peak PV Grad: 2.00 Updated in Other Vendor System with Status of Final Humble Mccormick MD electronically signed on 11/15/2023 11:13:12 AM with status of Final
--- NOTE | 2023-11-13 09:56 | HM_ITS ---
* Total monitoring time 2 weeks. * Underlying rhythm is sinus with an average rate of 73/Min. * Frequent ventricular ectopy with a burden of 4.3%. Rare couplets, bigeminy, trigeminy. Multiple morphologies. One episode of NSVT-4 beats-monomorphic. * Rare supraventricular ectopy. * No significant pauses or AV blocks. * Patient marker used once in association with ventricular ectopy. * Lightheadedness, fluttering in patient diary correlates with ventricular ectopy. MTDD
== END ==
LOC: HO.CARD 09:52
PROVIDERS: PCP Internal Medicine; Visit Provider Internal Medicine Cardiovascular Disease
DX: I49.3 Ventricular premature depolarization (principal)
CPT/HCPCS: 93246; 93306; 93356

== ENCOUNTER → 2023-11-13 09:56 | Outpatient (BNV) | payer MEDICARE, SELFPAY | PROVIDERS: PCP Internal Medicine; Visit Provider Internal Medicine | DX: I49.3 Ventricular premature depolarization (principal) | CPT/HCPCS: 93248; 93306; 93356 ==

== ENCOUNTER → 2023-11-24 10:55 | Outpatient (REF) | payer MEDICARE, SELFPAY ==
--- NOTE | 2023-11-24 10:58 | CA_ITS ---
Acquisition Time: 2023-11-24 11:05:55 Total Exercise Time: 00:09:29 Test Indications: PVC'S Medications: Protocol: DONNELL Max HR: 151 BPM 99% of Pred: 152 BPM Max BP: 146/072 mmHG Max Work Load: 10.1 METS Exercise stress test exercise 9 min 29 sec of Donnell protocol achieving approximately 93% MPHR, without anginal symptoms, with isolated PVCs, with normtoesnive response to exercise, without EKG changes. Echo images obtained by [employer] at rest and immediately post peak exercise. Definity contrast used. Test reviewed with Dr. Mccormick. Referred By: Nino Rocha Overread By: Kita Armstrong
== END ==
LOC: HO.CARD 10:55
PROVIDERS: PCP Internal Medicine; Visit Provider Internal Medicine Cardiovascular Disease
DX: I49.3 Ventricular premature depolarization (principal)
CPT/HCPCS: 93350; Q9957

== ENCOUNTER → 2023-11-24 10:58 | Outpatient (BNV) | payer MEDICARE, SELFPAY | PROVIDERS: PCP Internal Medicine; Visit Provider Nurse Practitioner | DX: I49.3 Ventricular premature depolarization (principal); R94.31 Abnormal electrocardiogram [ECG] [EKG] | CPT/HCPCS: 93016; 93018; 93350; 93352 ==

== ENCOUNTER 2024-01-06 10:04 | Outpatient (AMB) | payer MEDICARE, SELFPAY ==
--- NOTE | 2024-01-06 10:07 | A.OFFVIS_ITS ---
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 boulardii)) 250 mg PO BID HPI Comments Details: Martha comes for follow-up. Patient says a burden of PVCs have suddenly improved on metoprolol therapy although since starting metoprolol therapy with current whether she is getting more and more lightheaded. She gets lightheaded once sometimes she gets up suddenly. She has not had any syncopal events. Patient has not been monitoring her blood pressures at home usually. Taking her medications. Her recent echocardiogram showed LVEF of 50-55% with stress echocardiogram negative for myocardial ischemia. Holter monitor shows frequent PVCs with multiple different foci along with 1 episode of 4 beat of nonsustained VT. [facility] Medical History Diverticulosis Asthma Migraine Surgical History H/O foot surgery (~2005) History of colonoscopy (~2014) History of total abdominal hysterectomy and bilateral salpingo-oophorectomy History of hand surgery (~05/2020) History of total knee arthroplasty (~2009) Family History Father CAD (coronary artery disease) Mother No problems noted. Social History Alcohol intake: current Alcohol intake frequency: holidays/special occasions only Patient Tobacco Use Status: Never used Tobacco Review of Systems Const Denies chills, Denies fatigue, Denies fever(s), Denies frequent falls, Denies weakness, Denies weight gain and Denies weight loss ENT Denies dizziness Card Denies chest pain, Denies leg edema, Denies lightheadedness, Denies palpitations, Denies dyspnea, Denies dyspnea on exertion, Denies orthopnea and Denies other (loss of consciousness) Resp Denies cough, Denies dyspnea and Denies dyspnea on exertion GI Denies hematochezia and Denies change in stool character Musc Denies abnormal gait, Denies muscle weakness, Denies numbness, Denies radiating pain into limb and Denies tingling Neuro Denies Abnormal speech present, Denies abnormal gait, Denies dizziness, Denies frequent falls, Denies numbness, Denies tingling and Denies weakness Endo Denies fatigue and Denies palpitations Physical Exam Vital Signs: Last Vital Signs Pulse 65 01/06/24 10:23 BP 124/84 01/06/24 10:23 BMI result Body Mass Index 24.6 Const General: cooperative, comfortable, no acute distress, well developed, alert, awake, Physically active and well groomed Nutritional Appearance: well nourished and thin Orientation/consciousness: patient oriented x3 Limitations: no limitations HEENT Head: Yes normocephalic and Yes atraumatic Neck Neck: Yes trachea midline, Yes supple and Yes no JVD Resp Effort & Inspection: normal respiratory effort Auscultation: clear to auscultation bilaterally Cardio Jugular venous distension: no JVD Palpation: normal PMI Rate: regular rate Rhythm: regular rhythm Heart sounds: S1 normal heart sound present, S2 normal heart sound present, no click, no gallops, no murmurs and no rubs GI Auscultation: normal bowel sounds Skin General skin exam: no rashes or lesions noted Neuro General: patient oriented x3 and no focal motor deficits Speech: No Abnormal speech present Extrem General: Yes no clubbing, cyanosis or edema Psych Appearance: grossly normal Assessment & Plan Assessment & Plan (1) PVCs (premature ventricular contractions): Code(s): I49.3 - Ventricular premature depolarization Category: Medical Plan: Multifocal PVCs with 1 episode of nonsustained VT which has improved in symptoms and frequency by metoprolol therapy but she is not tolerating metoprolol side effects with lightheadedness. There is no evidence of myocardial ischemia and LV ejection fraction is at low end of normal. Given multifocal nature of PVCs would suggest further imaging with cardiac MRI to evaluate for other etiology such as cardiac sarcoidosis or other infiltrative disorder. This will be scheduled in near future. Will also suggest a Holter monitor in coming weeks. If she continues to have frequent PVCs which has symptomatic and multifocal and continues to have side effects to metoprolol therapy will pursue antiarrhythmic drug therapy with flecainide if she does not have any significant structural heart issues. This was discussed with her. Given multifocal nature of PVCs unlikely to benefit from ablation therapy. Will follow up in the clinic in 3 months time. Thank you for allowing me to partake in his care Orders: Orders cardiac morph fnct w con 2 Weeks I49.3 - Ventricular premature depolarization Coding Level of Care Code Est Pt Level 4 (16195) Diagnoses PVCs (premature ventricular contractions) I49.3
[2024-01-06 10:08] VITALS: BP 133/76; PULSE 61; BMI 24.6
[2024-01-06 10:18] VITALS: BP 126/76; PULSE 60
[2024-01-06 10:23] VITALS: BP 124/84; PULSE 65
== END 2024-01-06 10:55 | disposition home or self-care (01) ==
PROVIDERS: PCP Internal Medicine; Visit Provider Internal Medicine Cardiovascular Disease
DX: I49.3 Ventricular premature depolarization (principal)
CPT/HCPCS: 99214

== ENCOUNTER → 2024-01-06 10:04 | Outpatient (BNVA) | payer MEDICARE, SELFPAY | PROVIDERS: PCP Internal Medicine; Visit Provider Internal Medicine Cardiovascular Disease | DX: I49.3 Ventricular premature depolarization (principal) | CPT/HCPCS: 99212 ==

== ENCOUNTER → 2024-02-11 08:04 | Outpatient (REF) | payer MEDICARE, SELFPAY ==
--- NOTE | 2024-02-11 08:08 | HM_ITS ---
* Total monitoring time 2 days. * Underlying rhythm is sinus with an average rate of 75/Min. * Rare supraventricular ectopy. * Frequent ventricular ectopy with a burden of 3.7%. Rare couplets, bigeminy, trigeminy. No significant runs. * No significant pauses or high-grade AV blocks. * No patient markers. * Patient reported tired, skipping beats, related to artifact. MTDD
== END ==
LOC: HO.CARD 08:04
PROVIDERS: PCP Internal Medicine; Visit Provider Internal Medicine Cardiovascular Disease
DX: I49.3 Ventricular premature depolarization (principal)
CPT/HCPCS: 93225

== ENCOUNTER → 2024-02-11 08:08 | Outpatient (BNV) | payer MEDICARE, SELFPAY | PROVIDERS: PCP Internal Medicine; Visit Provider Internal Medicine | DX: I49.3 Ventricular premature depolarization (principal) | CPT/HCPCS: 93227 ==

== ENCOUNTER 2024-03-04 08:54 | Outpatient (REF) | payer MEDICARE, SELFPAY ==
[2024-03-04 10:46] LABS: Anion Gap 10 (12-20); Blood Urea Nitrogen 14 mg/dL (9-16); Calcium 9.9 mg/dL (8.4-10.2); Carbon Dioxide 28 mmol/L (22-29); Chloride 106 mmol/L (96-108); Estimated Glomerular Filt Rate > 60; Glucose Random 108 mg/dL (60-115); Potassium 4.2 mmol/L (3.3-5.1); Sodium 140 mmol/L (135-145)
== END 2024-03-04 08:55 | disposition home or self-care (01) ==
LOC: HO.HMGCLDS 08:54
PROVIDERS: PCP Internal Medicine; Visit Provider Internal Medicine Cardiovascular Disease
DX: I49.3 Ventricular premature depolarization (principal)
CPT/HCPCS: 36415; 80048

== ENCOUNTER 2024-04-26 09:50 | Outpatient (AMB) | payer MEDICARE, SELFPAY ==
[2024-04-26 09:57] VITALS: BP 120/62; PULSE 78; BMI 24.6
--- NOTE | 2024-04-26 09:57 | A.OFFVIS_ITS ---
Vital Signs 04/26/24 09:57 Height 5 ft 5 in Weight 147 lb 11.355 oz BMI 24.6 BP 120/62 Blood Pressure Location Lt brachial Position Sitting Pulse 78 Pulse Source Pulse Oximeter Intake Visit Reasons: 3 mth f/up Allergies erythromycin base [ERYTHROMYCIN BASE] Allergy (Intermediate, Verified 11/09/23 12:48) HIVES, RASH Medication List - Last Reconciled 04/26/24 by Nino Rocha MD albuterol sulfate 90 mcg/actuation 2 puffs inhalation Q6H PRN calcium carbonate-vitamin D3 500 mg-10 mcg (400 unit) (Calcium 500 With D) 1 tab PO DAILY ibuprofen 1 tab PO BID PRN metoprolol tartrate 25 mg PO BID Saccharomyces boulardii (Daily Probiotic (S. boulardii)) 250 mg PO BID HPI Comments Details: Martha comes for follow-up. She continues to have intermittent symptoms of palpitations. Sometimes her symptoms of worsening she gets lightheaded when she was frequent PVCs. She went for a cardiac MRI but was not able to do it due to claustrophobia. Patient is tolerating metoprolol therapy at current dose. Continues to play golf and has no exertional symptoms. She says hip is bothering and may need orthopedic intervention. [facility] Medical History Diverticulosis Asthma Migraine Surgical History H/O foot surgery (~2005) History of colonoscopy (~2014) History of total abdominal hysterectomy and bilateral salpingo-oophorectomy History of hand surgery (~05/2020) History of total knee arthroplasty (~2009) Family History Father CAD (coronary artery disease) Mother No problems noted. Social History Alcohol intake: current Alcohol intake frequency: holidays/special occasions only Patient Tobacco Use Status: Never used Tobacco Review of Systems Const Denies weakness ENT Denies dizziness Card Denies chest pain, Denies chest pain with activity, Denies syncope, Denies rapid heart rate, Denies pedal edema, Denies edema, Denies leg edema, Denies lightheadedness, Denies palpitations, Denies dyspnea, Denies dyspnea on exertion and Denies orthopnea Resp Denies cough, Denies dyspnea and Denies dyspnea on exertion GI Denies hematochezia and Denies change in stool character Musc Denies abnormal gait, Denies muscle cramps, Denies muscle weakness, Denies numbness, Denies radiating pain into limb and Denies tingling Neuro Denies Abnormal speech present, Denies abnormal gait, Denies dizziness, Denies syncope, Denies numbness, Denies tingling and Denies weakness Endo Denies palpitations Physical Exam Vital Signs: Last Vital Signs Pulse 78 04/26/24 09:57 BP 120/62 04/26/24 09:57 BMI result Body Mass Index 24.6 Const General: cooperative, comfortable, no acute distress, well developed, alert, awake, Physically active and well groomed Nutritional Appearance: well nourished and thin Orientation/consciousness: patient oriented x3 Limitations: no limitations HEENT Head: Yes normocephalic and Yes atraumatic Neck Neck: Yes trachea midline, Yes supple and Yes no JVD Resp Effort & Inspection: normal respiratory effort Auscultation: clear to auscultation bilaterally Cardio Jugular venous distension: no JVD Palpation: normal PMI Rate: regular rate Rhythm: regular rhythm Heart sounds: S1 normal heart sound present, S2 normal heart sound present, no click, no gallops, no murmurs and no rubs GI Auscultation: normal bowel sounds Skin General skin exam: no rashes or lesions noted Neuro General: patient oriented x3 and no focal motor deficits Speech: No Abnormal speech present Extrem General: Yes no clubbing, cyanosis or edema Psych Appearance: grossly normal Assessment & Plan Assessment & Plan (1) PVCs (premature ventricular contractions): Code(s): I49.3 - Ventricular premature depolarization Category: Medical Plan: Frequent PVCs still symptomatic despite metoprolol therapy. Overall no sig nificant evidence of ischemia or cardiomyopathy process low normal LV EF. Need cardiac MRI, will prescribe bad event to hopefully be able to perform cardiac MRI to evaluate for infiltrative disorder. This was discussed with her. We discussed other treatment options given her symptoms present and can increase metoprolol to 37.5 mg b.i.d.. Advised to call me with any new side effects. Advised to call me with a month's time. If symptoms are not improved will further uptitrate metoprolol and/or use antiarrhythmic drug therapy such as flecainide. She wants to hold off on flecainide therapy at this point time. If she needs orthopedic procedure, she is currently optimized with low risk for perioperative cardiovascular morbidity mortality. Will follow with you Medications: New lorazepam (Ativan) 1 mg PO DAILY PRN 4 tabs 0RF anxiety Changed From metoprolol tartrate 25 mg PO BID 60 tabs 5RF I49.3 - Ventricular premature depolarization To metoprolol tartrate 37.5 mg (1.5 x 25 mg) PO BID 90 tabs 5RF I49.3 - Ventricular premature depolarization Coding Level of Care Code Est Pt Level 4 (48939) Diagnoses PVCs (premature ventricular contractions) I49.3
== END 2024-04-26 10:34 | disposition home or self-care (01) ==
PROVIDERS: PCP Internal Medicine; Visit Provider Internal Medicine Cardiovascular Disease
DX: I49.3 Ventricular premature depolarization (principal)
CPT/HCPCS: 99214

== ENCOUNTER → 2024-04-26 09:50 | Outpatient (BNVA) | payer MEDICARE, SELFPAY | PROVIDERS: PCP Internal Medicine; Visit Provider Internal Medicine Cardiovascular Disease | DX: I49.3 Ventricular premature depolarization (principal) | CPT/HCPCS: 99212 ==

== ENCOUNTER 2024-06-04 14:37 | Outpatient (REF) | payer MEDICARE, SELFPAY ==
--- OUTSIDE RECORDS SUMMARY | 2024-06-04 14:39 | XMS_ITS | Patient Health Record ---
Author Organization [facility] Address [address] [place] [address] Care Team Providers Care Net Technical Architect Name Role Phone Yessi CUELLAR, Quintin Primary Care Provider Frank Hilton Jr Unavailable ALLERGIES Allergen (clinical drug ingredient) Drug/Non Drug Allergy documented on EMR Reaction Allergy Type Onset Date Status erythromycin Erythromycin Unknown Drug Allergy A ctive REASON FOR REFERRAL No Information MEDICATIONS Medication SIG (Take, Route, Frequency, Duration) Notes Start Date End Date Status Motrin prn Active Metoprolol Succinate ER 25 MG TAKE 1 TABLET BY MOUTH DAILY Oral for 30 Active IMMUNIZATIONS Vaccine Route Administration Date Status Comme nts Influenza Unknown 03/16/2020 Administered Influenza Unknown 04/08/2023 Administered SOCIAL HISTORY Tobacco Use: Social History Observation Description Date Details (start date - stop date) Never Smoker NA - NA Sex Assigned At : Social History Observation Description Sex Assigned At Unknown Tobacco Use/Smoking Question Answer Notes Patient is a nonsmoker Alcohol Screen Question Answer Notes Did you have a drink contain ing alcohol in the past year? Yes How often did you have a dri nk containing alcohol in the past year? Monthly or less (1 point) How many drinks did you have on a typical day when you were drinking in the past year? 1 or 2 drinks (0 point) How often did you have 6 or more drinks on one occasion in the past year? Never (0 point) Points 1 Interpretation Negative PROBLEMS Problem Type ICD Code Onset Dates Problem Status W/U Status Risk SNOMED Code Notes Problem Colon cancer screening (Z12.11) Active confirmed 177420323 Problem Family history of colon cancer (Z80.0) Active confirmed 977828695 Problem Encounter for other preprocedural examination (Z01.818) Active confirmed 297315785 Problem Gastroesophageal reflux disease, unspecified whether esophagitis present (K21.9) Active confirmed 745539919 Problem Gastric polyp (K31.7) Active confirmed Gastric polyp (45582095) Problem Gastric intestinal metaplasia (K31.A0) Active confirmed 33207599 VITAL SIGNS Temperature 97.5 degrees Fahrenheit 10/29/2023 Blood pressure diastolic 00 mm Hg 10/29/2023 Height 65 in 10/29/2023 Blood pressure systolic 000 mm Hg 10/29/2023 Weight 147 lb 6 oz lbs 10/29/2023 BMI 24.52 kg/m2 10/29/2023 Encounters Encounter Location Date Provider Diagnosis [facility] [address] [place] [address] 10/29/2023 Frank Suarez Jr Gastric intestinal metaplasia K31.A0 and Gastroesophageal reflux disease, unspecified whether esophagitis present K21.9 ASSESSMENTS Encounter Date Diagnosis Assessment Notes Treatment Notes Treatment Clinical Notes 10/29/2023 Gastroesophageal reflux disease, unspecified whether esophagitis present (ICD-10 - K21.9) 10/29/2023 Gastric intestinal metaplasia (ICD-10 - K31.A0) Gastroesophageal reflux disease material was printed PLAN OF TREATMENT Future Test Test Name Order Date COLONOSCOPY 10/05/2020 UPPER GI ENDOSCOPY 05/15/2022 UPPER GI ENDOSCOPY 06/12/2022 Next Appt Details Provider Name:Frank smith Jr, 10/25/2024 09:00:00 AM, [address] [facility], [address], [place], [address], Insurance Providers Payer Name Payer Address Payer Phone Subscriber Number Group Number Insured Name Patient Relationship to Insured Coverage Start Date Coverage End Date [facility] [address] [place] [phone] [id number] JOHNSON Self - patient is the insured MEDICAL (GENERAL) HISTORY Medical History History ICD Code migraine headaches asthma, triggers include upper respirato ry infections and allergies colon polyp, colonoscopy 02/14 , tubular adenoma, mild diverticulosis, melanosis coli, five-year followup PVCs/PACs Gastroesophageal reflux dise ase, gastric intestinal metaplasia, localized by EGD 09/05 Colonoscopy 12/04, normal, 5 year recall Surgical History Surgery Date(Month/Year) left cmc (thumb surgery) 05/2020 right total knee replacement 2009 fusion right great toe 2005 TLH/BSO 2008
[2024-06-04 15:36] LABS: Anion Gap 11 (12-20); Blood Urea Nitrogen 18 mg/dL (9-16); Calcium 9.8 mg/dL (8.4-10.2); Carbon Dioxide 30 mmol/L (22-29); Chloride 107 mmol/L (96-108); Estimated Glomerular Filt Rate 54; Glucose Random 89 mg/dL (60-115); Potassium 3.7 mmol/L (3.3-5.1); Sodium 144 mmol/L (135-145)
== END 2024-06-04 14:38 | disposition home or self-care (01) ==
LOC: HO.LAB 14:37
PROVIDERS: PCP Internal Medicine; Visit Provider Internal Medicine Cardiovascular Disease
DX: I49.3 Ventricular premature depolarization (principal)
CPT/HCPCS: 36415; 80048

== ENCOUNTER 2024-10-22 13:50 | Outpatient (REF) | payer MEDICARE, SELFPAY ==
--- OUTSIDE RECORDS SUMMARY | 2024-10-22 13:54 | XMS_ITS | Encounter Summary ---
Author Organization [facility] Address [address] [place] [address] Care Team Providers Care Emergency Medical Service Manager Name Role Phone Unavailable Primary Care Provider Unavailabl e Encounter Details Date Type Department Care Team Description 08/09/[address] [facility] Historical Conversion Robert Carlson MD [address] [facility] [address] [place] [address] Social History Tobacco Use Types Packs/Day Years [...]
--- OUTSIDE RECORDS SUMMARY | 2024-10-22 13:54 | XMS_ITS | Encounter Summary ---
Author Organization [facility] Address [address] [place] [address] Care Team Providers Care Shaft Mechanic Name Role Phone Unavailable Primary Care Provider Unavailabl e Encounter Details Date Type Department Care Team Description 08/19/2013 7:51 AM EST Hospital Encounter [facility] Historical Conversion Robert Carlson MD [address] [facility] [address] [place] [address] Social History Tobacco Use Types Packs/Day Years [...] Filtration Rate, Estimated >60.0 08/19/2013 2:57 PM [facility] Comment:MDRD in mL min 1.73 [...]
--- OUTSIDE RECORDS SUMMARY | 2024-10-22 13:54 | XMS_ITS | Clinical Summary ---
Author Organization [facility] Address [address] [place] [address] Care Team Providers Care Neuropathologist Name Role Phone Quintin Dickson MD Primary Care Provider [phone] Social History Tobacco Use Types Packs/Day Years Used Date Smoking Tobacco: Never Assessed Sex and Gender Information Value Date Recorded Sex Assigned at Not on file Gender Identity Not on file Sexual Orientation Not on file Plan of Treatment Not on file Care Teams Neuropathologist Relationship Specialty Start Date End Date Quintin Dickson MD [address] [place] [address] [phone] PCP - General Internal Medicine 02/17/14
--- OUTSIDE RECORDS SUMMARY | 2024-10-22 13:54 | XMS_ITS ---
Author Organization [facility] Address [address] [place] [address] Care Team Providers Care Casework Manager Name Role Phone Quintin Dickson MD Primary Care Provider Frank Hilton Jr Unavailable Allergies Allergen (clinical drug ingredient) Drug/Non Drug Allergy documented on EMR Reaction Allergy Type Onset Date Status erythromycin Erythromycin Unknown Drug Allergy A ctive REASON FOR VISIT Patient presents today for gerd Medications Medication SIG (Take, Route, Frequency, Duration) Notes Start Date End Date Status Motrin prn Active Metoprolol Succinate ER 25 MG TAKE 1 TABLET BY MOUTH DAILY Oral for 30 Active Social History Tobacco Use: Social History Observation Description Date Details (start date - stop date) Never Smoker NA - NA Tobacco Use/Smoking Question Answer Notes Patient is [...] Never (0 point) Points 1 Interpretation Negative Vital Signs Temperature 97.5 degrees Fahrenheit 10/29/19 24 Blood pressure systolic 000 mm Hg 10/29/19 24 Blood pressure diastolic 00 mm Hg 024 Height 65 in 10/29/2023 Weight 147 lb 6 oz lbs 10/29/2023 BMI 24.52 kg/m2 10/29/2023 Encounters Encounter Location Date Provider Diagnosis [facility] [address] [place] [address] 10/29/2023 Frank Erick Jr Gastric intestinal metaplasia K31.A0 and Gastroesophageal reflux disease, unspecified whether esophagitis present K21.9 Assessments Encounter Date Diagnosis (ICD Code) Assessment Notes Treatment Notes Treatment Clinical Notes Section Notes 10/29/2023 Gastric intestinal metaplasia (ICD-10 - K31.A0) Gastroesophageal reflux disease material was printed Currently, she is doing well. We discussed gastroesophageal reflux disease today. We discussed gastric intestinal metaplasia. She will continue diet, weight management, lifestyle modifications regarding her reflux. We discussed that she is at some increased risk of gastric cancer because of the intestinal metaplasia, however it is not widespread. She also has no primary family relatives or other risk factors for gastric cancer. She will continue present management and followup in one year. 10/29/2023 Gastroesophageal reflux disease, unspecified whether esophagitis present (ICD-10 - K21.9) Currently, she i s doing well. We discussed gastroesophageal reflux disease today. We discussed gastric intestinal metaplasia. She will continue diet, weight management, lifestyle modifications regarding her reflux. We discussed that she is at some increased risk of gastric cancer because of the intestinal metaplasia, however it is not widespread. She also has no primary family relatives or other risk factors for gastric cancer. She will continue present management and followup in one year. Plan Of Treatment Treatment Notes Assessment Notes Gastric intestinal metaplasia Gastroesop hageal reflux disease material was printed Next Appt Details Follow Up: 1 Year, Reason: Provider Name:Frank Hoyt sarah Benson, 10/25/2024 09:00:00 AM, [address] [place] [address], [address], [place], [address], Progress Notes * KB JOHNSON GDOB: [birth year] (68 yo F)Acc No.[id number]:10/29/2023 Progress Notes Patient:?KB JOHNSON Provider:?Frank Suarez MD :1955???Age:68 Y???Sex:Female D ate:10/29/2023 Address:[address] [place] [address] [phone] Pcp:Quintin Dickson MD Subjective: * Chief Complaints: * ???1. Patient presents today for gerd. * HPI: ???New symptom(s):? Veronika returns today for followup of gastroesophageal reflux disease and gastric intestinal metaplasia. She underwent upper endoscopy on September 10 of last year for followup of gastric intestinal metaplasia. This showed gastric intestinal metaplasia in prepyloric biopsies from the greater curvature only. There was no dysplasia. We reviewed this today. H. pylori testing was also negative. ?She feels well. She has been able to stop her proton pump inhibitor and is controlling her current symptoms of gastroesophageal reflux disease with diet, weight loss, and lifestyle modifications. She has no dysphagia, hematemesis, or melena. * Medical History:?Migraine he adaches, Asthma, triggers include upper respiratory infections and allergies, Colon polyp, colonoscopy 02/23/15, tubular adenoma, mild diverticulosis, melanosis coli, five-year followup, PVCs/PACs, Gastroesophageal reflux disease, gastric intestinal metaplasia, localized by EGD 09/05, Colonoscopy 12/04, normal, 5 year recall. * Surgical History:?left cmc ( thumb surgery) 05/2020, right total knee replacement 2009, fusion right great toe 2005, TLH/BSO 2008. * Family History:?Father: dece ased, diagnosed with HTN (hypertension), Colon cancer, Heart disease.?Mother: .? No family history of liver disease. Her brother had Crohn's disease, and her mother had pancreatic cancer. * Social History:?Tobacco Use:?Tobacco Use/Smoking?Patient is a?nonsmoker.?Drugs/Alcohol:?Alcohol Screen?Did you have a drink containing alcohol in the past year??Yes,?How often did you have a drink containing alcohol in the past year??Monthly or less (1 point), How many drinks did you have on a typical day when you were drinking in the past year??1 or 2 drinks (0 point),?How often did you have 6 or more drinks on one occasion in the past year??Never (0 point),?Points?1,?Interpretation?Negative.?Miscellaneous:?Marital status: . 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 * Medications:?Taking Motrin p rn, Taking Metoprolol Succinate ER 25 MG Tablet Extended Release 24 Hour TAKE 1 TABLET BY MOUTH DAILY Oral , Discontinued MiraLax (colon prep) 8.3 ounce ((238) grams mixed with Gatorade or Crystal Light orally begin at 5:00 p.m. the day before the procedure, Medication List reviewed and reconciled with the patient * Allergies:?Erythromycin. Objective: * Vitals:?Wt: 147 lb 6 oz, Ht: 65 in, BMI:24.52 Index, BP: 000/00 mm Hg, Temp: 97.5. * Examination: ???General Examination: ???On examination today, she appears well. Skin is anicteric. Clear. Shows regular rate and rhythm. Abdomen is soft no focal mass or tenderness. Extremities are without edema. Assessment: * Assessment: 1.?Gastric intestinal metapl danyel - K31.A0 (Primary)?2.?Gastroesophageal reflux disease, unspecified whether esophagitis present - K21.9? Currently, she is doing well . We discussed gastroesophageal reflux disease today. We discussed gastric intestinal metaplasia. She will continue diet, weight management, lifestyle modifications regarding her reflux. We discussed that she is at some increased risk of gastric cancer because of the intestinal metaplasia, however it is not widespread. She also has no primary family relatives or other risk factors for gastric cancer. She will continue present management and followup in one year. Plan: * Treatment: * Procedure Codes:?3017F COLOR ECTAL CA SCREEN DOC REV, G9903 Pt scrn tbco id as non user, G9745 DOC RSN FOR NOT SCREEN/REC F/U HBP * Preventive Medicine:? ??Urinary Incontinence:?Urinary Incontinence?Assessment:?Present,?Plan of care documented:?Yes,?Type of plan of care:?Lifestyle interventions.? * Follow Up:?1 Year * * Sign off status: Completed true * Provider:?Frank Suarez MD Date:?0 10/29/2023 Generated for Napoleon fleming/Noah/eTmarco antonio on:?10/22/2024 01:54 PM EDT History and Physical Notes * HPI (History of Present Illness) Category Sub-Category Detail Notes Category Not es New symptom(s) Veronika returns today for followup of gastroesophageal reflux disease and gastric intestinal metaplasia. She underwent upper endoscopy on September 10 of last year for followup of gastric intestinal metaplasia. This showed gastric intestinal metaplasia in prepyloric biopsies from the greater curvature only. There was no dysplasia. We reviewed this today. H. pylori testing was also negative. She feels well. She has been able to stop her proton pump inhibitor and is controlling her current symptoms of gastroesophageal reflux disease with diet, weight loss, and lifestyle modifications. She has no dysphagia, hematemesis, or melena. Examination Category Sub-Category Detail Notes Category Not es General Examination On exami nation today, she appears well. Skin is anicteric. Clear. Shows regular rate and rhythm. Abdomen is soft no focal mass or tenderness. Extremities are without edema.
--- OUTSIDE RECORDS SUMMARY | 2024-10-22 13:54 | XMS_ITS | Encounter Summary ---
Author Organization [facility] Address [address] [place] [address] Care Team Providers Care Metal Drill Press Operator Name Role Phone Unavailable Primary Care Provider Unavailabl e Encounter Details Date Type Department Care Team Description 08/16/2013 11:00 AM [facility] Hospital Encounter [facility] Historical Conversion Robert Carlson MD [address] [facility] [address] [place] [address] Social History Tobacco Use Types Packs/Day Years [...]
--- OUTSIDE RECORDS SUMMARY | 2024-10-22 13:54 | XMS_ITS | Patient Health Record ---
Author Organization [facility] Address [address] [place] [address] Care Team Providers Care Tone Regulator Name Role Phone Yessi CUELLAR, Quintin Primary Care Provider Frank Hilton Jr Unavailable Allergies Allergen (clinical drug ingredient) Drug/Non Drug Allergy documented on EMR Reaction Allergy Type Onset Date Status erythromycin Erythromycin Unknown Drug Allergy A ctive Reason For Referral No Information Medications Medication SIG (Take, Route, Frequency, Duration) Notes Start Date End Date Status Motrin prn Active Metoprolol Succinate ER 25 MG TAKE 1 TABLET BY MOUTH DAILY Oral for 30 Active Immunizations Vaccine Route Administration Date Status Comme nts Influenza Unknown 03/16/2020 Administered Influenza Unknown 04/08/2023 Administered Social History Tobacco Use: Social History Observation [...] Never (0 point) Points 1 Interpretation Negative Problems Problem Type SNOMED Code ICD Code Onset Dates Problem Status W/U Status Risk Notes Problem 006399841 Colon cancer screening (Z12.11) Active confirmed Problem 613444094 Encounter for ot her preprocedural examination (Z01.818) Active confirmed Problem 185620792 Family history o f colon cancer (Z80.0) Active confirmed Problem Gastric polyp (20713320) Gastric polyp (K31.7) Active confirmed Problem 286086179 Gastroesophageal reflux disease, unspecified whether esophagitis present (K21.9) Active confirmed Problem 60854828 Gastric intestin al metaplasia (K31.A0) Active confirmed Vital Signs Temperature 97.5 degrees Fahrenheit 10/29/2023 Blood pressure diastolic 00 mm Hg 10/29/2023 Height 65 in 10/29/2023 Blood pressure systolic 000 mm Hg 10/29/2023 Weight 147 lb 6 oz lbs 10/29/2023 BMI 24.52 kg/m2 10/29/2023 Encounters Encounter Location Date Provider Diagnosis [facility] [address] [place] [address] 10/29/2023 Frank Suarez Jr Gastric intestinal metaplasia K31.A0 and Gastroesophageal reflux disease, unspecified whether esophagitis present K21.9 Assessments Encounter Date Diagnosis (ICD Code) Assessment Notes Treatment Notes Treatment Clinical Notes Section Notes 10/29/2023 Gastroesophageal reflux disease, unspecified whether [...] management and followup in one year. 10/29/2023 Gastric intestinal metaplasia (ICD-10 - K31.A0) [...] followup in one year. Plan Of Treatment Future Test Test Name Order Date COLONOSCOPY 10/05/2020 UPPER GI ENDOSCOPY 05/15/2022 UPPER GI ENDOSCOPY 06/12/2022 Next Appt Details Provider Name:Frank smith Jr, 10/25/2024 09:00:00 AM, [address], [address], [place], [address], Insurance Providers Payer Name Payer Address Payer Phone Subscriber Number Group Number Insured Name Patient Relationship to Insured Coverage Start Date Coverage End Date [facility] [address] [place] [phone] [id number] KB JOHNSON Self - patient is the insured Medical (General) History Medical History History ICD Code migraine headaches [...] knee replacement 2009 fusion right great toe 2006 TLH/BSO 2008
== END 2024-10-22 13:51 | disposition home or self-care (01) ==
LOC: HO.MAMMO 13:50
PROVIDERS: PCP Internal Medicine; Visit Provider Internal Medicine
DX: Z12.31 Encounter for screening mammogram for malignant neoplasm of breast (principal)
CPT/HCPCS: 77063; 77067

== ENCOUNTER → 2024-10-22 14:00 | Outpatient (BNV) | payer MEDICARE, SELFPAY | PROVIDERS: PCP Internal Medicine; Visit Provider Internal Medicine | DX: Z12.31 Encounter for screening mammogram for malignant neoplasm of breast (principal) | CPT/HCPCS: 77063; 77067 ==

== ENCOUNTER 2025-04-04 13:22 | Outpatient (AMB) | payer MEDICARE, SELFPAY ==
--- NOTE | 2025-04-04 13:46 | MHC.OFFVIS ---
Vital Signs 04/04/25 13:47 Height 5 ft 5 in Weight 149 lb 14.629 oz BMI 24.9 BP 110/70 Blood Pressure Location Lt brachial Position Sitting Pulse 68 Intake Visit Reasons: 6 mth f/up mri/ r/s 02/18 Intake Note: 6 month follow-up with ekg feeling good Roaster Operator Required: No Allergies erythromycin base (ERYTHROMYCIN BASE) Allergy (Intermediate, Verified 11/09/23 12:48) HIVES, RASH Medication List - Last Reconciled 04/04/25 by Nino Rocha MD albuterol sulfate 90 mcg/actuation 2 puffs inhalation Q6H PRN calcium carbonate-vitamin D3 500 mg-10 mcg (400 unit) (Calcium 500 With D) 1 tab PO DAILY ibuprofen 1 tab PO BID PRN lorazepam (Ativan) 1 mg PO DAILY PRN metoprolol tartrate 50 mg PO BID Saccharomyces boulardii (Daily Probiotic (S. boulardii)) 250 mg PO BID HPI Comments Details: Martha comes for follow-up. She has remained pretty active. Continues play golf actively. Takes care of her grandchildren. No symptoms of chest pain or shortness of breath exertion. Occasionally still feels palpitations but not as frequently. Denies any syncope. Does have orthostatic lightheadedness especially when she gets up from a squatting position. Denies any orthopnea, PND, leg edema. [facility] Medical History Diverticulosis Asthma Migraine Surgical History H/O foot surgery (~2005) History of colonoscopy (~2014) History of total abdominal hysterectomy and bilateral salpingo-oophorectomy History of hand surgery (~05/2020) History of total knee arthroplasty (~2009) Family History Father CAD (coronary artery disease) Mother No problems noted. Social History Alcohol intake: current Alcohol intake frequency: holidays/special occasions only Patient Tobacco Use Status: Never used Tobacco Review of Systems Const Denies chills, Denies fatigue, Denies fever(s), Denies frequent falls, Denies weakness, Denies weight gain and Denies weight loss ENT Denies dizziness Card Denies chest pain, Denies leg edema, Denies lightheadedness, Denies palpitations, Denies dyspnea, Denies dyspnea on exertion, Denies orthopnea and Denies other (loss of consciousness) Resp Denies cough, Denies dyspnea and Denies dyspnea on exertion GI Denies hematochezia and Denies change in stool character Musc Denies abnormal gait, Denies muscle weakness, Denies numbness, Denies radiating pain into limb and Denies tingling Neuro Denies Abnormal speech present, Denies abnormal gait, Denies dizziness, Denies frequent falls, Denies numbness, Denies tingling and Denies weakness Endo Denies fatigue and Denies palpitations Physical Exam Vital Signs: Last Vital Signs Pulse 68 04/04/25 13:47 BP 110/70 04/04/25 13:47 BMI result Body Mass Index 24.9 Const General: cooperative, comfortable, no acute distress, well developed, alert, awake, Physically active and well groomed Nutritional Appearance: well nourished and thin Orientation/consciousness: patient oriented x3 Limitations: no limitations HEENT Head: Yes normocephalic and Yes atraumatic Neck Neck: Yes trachea midline, Yes supple and Yes no JVD Resp Effort & Inspection: normal respiratory effort Auscultation: clear to auscultation bilaterally Cardio Jugular venous distension: no JVD Palpation: normal PMI Rate: regular rate Rhythm: regular rhythm Heart sounds: S1 normal heart sound present, S2 normal heart sound present, no click, no gallops, no murmurs and no rubs GI Auscultation: normal bowel sounds Skin General skin exam: no rashes or lesions noted Neuro General: patient oriented x3 and no focal motor deficits Speech: No Abnormal speech present Extrem General: Yes no clubbing, cyanosis or edema Psych Appearance: grossly normal Office Procedures EKG Details: EKG shows normal sinus rhythm with occasional PVCs, interpolated, appear to be unifocal [id number], Complete Assessment & Plan Assessment & Plan (1) PVCs (premature ventricular contractions): Code(s): I49.3 - Ventricular premature depolarization Category: Medical Plan: Frequent PVCs without any obvious structural heart abnormalities with preserved LV ejection fraction in the past with no myocardial ischemia and no structural abnormality CAD on cardiac MRI. Tolerating overall metoprolol well with improved symptoms of palpitations. Although EKGs today shows occasional PVCs. Will suggest a 2 day Holter monitor to assess frequency. If persists with frequent PVCs may consider therapy with antiarrhythmic to suppress her arrhythmias. This was discussed with her. Other possibilities consider ablation. Continue metoprolol therapy. Continue stress mitigation strategies. Avoidance of stimulants was discussed. Will follow up in 1 year's time, sooner PRN. Thank you for allowing me to partake in her care Orders: Orders ECG holter monitor 48 hour Today I49.3 - Ventricular premature depolarization Coding Level of Care Code Est Pt Level 4 (35612) Complex EM visit Add On G2211 Diagnoses PVCs (premature ventricular contractions) I49.3 CPT Codes EKG - CPT: 03991-Cqwkqbckvrovdkaki, Complete ([id number])
[2025-04-04 13:47] VITALS: BP 110/70; PULSE 68; BMI 24.9
== END 2025-04-04 14:06 | disposition home or self-care (01) ==
LOC: HO.HCS 13:23
PROVIDERS: PCP Internal Medicine; Visit Provider Internal Medicine Cardiovascular Disease
DX: I49.3 Ventricular premature depolarization (principal)
CPT/HCPCS: 93010; 99214; G2211

== ENCOUNTER → 2025-04-04 13:22 | Outpatient (BNVA) | payer MEDICARE, SELFPAY | PROVIDERS: PCP Internal Medicine; Visit Provider Internal Medicine Cardiovascular Disease | DX: I49.3 Ventricular premature depolarization (principal) | CPT/HCPCS: 93005; 99212 ==

== ENCOUNTER → 2025-05-05 09:32 | Outpatient (REF) | payer MEDICARE, SELFPAY ==
--- OUTSIDE RECORDS SUMMARY | 2013-08-09 | XMS_ITS | Encounter Summary ---
Author Organization [facility] Address [address] [place] [address] Care Team Providers Care Freight Coordinator Name Role Phone Unavailable Primary Care Provider Unavailabl e Encounter Details Date Type Department Care Team Description 08/09/2013 Hospital Encounter [facility] Historical Conversion Robert Carlson MD [address] [facility] [address] [place] [address] Social History Tobacco Use Types Packs/Day Years Used Date Smoking Tobacco: Never Assessed Sex and Gender Information Value Date Recorded Sex Assigned at Not on file Gender Identity Not on file Sexual Orientation Not on file documented as of this encounter Plan of Treatment Not on file documented as of this encounter Visit Diagnoses Not on filedocumented in this encounter
--- OUTSIDE RECORDS SUMMARY | 2013-08-16 11:00 | XMS_ITS | Encounter Summary ---
Author Organization [facility] Address [address] [place] [address] Care Team Providers Care Dye House Vat Worker Name Role Phone Unavailable Primary Care Provider Unavailabl e Encounter Details Date Type Department Care Team Description 08/16/2013 11:[address] [facility] Hospital Encounter [facility] Historical Conversion Robert Carlson MD [address] [facility] [address] [place] [address] Social History Tobacco Use Types Packs/Day Years [...]
--- OUTSIDE RECORDS SUMMARY | 2013-08-19 07:51 | XMS_ITS | Encounter Summary ---
Author Organization [facility] Address [address] [place] [address] Care Team Providers Care Clay Pigeon Loader Name Role Phone Unavailable Primary Care Provider Unavailabl e Encounter Details Date Type Department Care Team Description 08/19/2013 7:51 AM EST Hospital Encounter [facility] Historical Conversion Robert Carlson MD [address] [facility] [address] [place] [address] Social History Tobacco Use Types Packs/Day Years Used Date Smoking Tobacco: Never Assessed Sex and Gender Information Value Date Recorded Sex Assigned at Not on file Gender Identity Not on file Sexual Orientation Not on file documented as of this encounter Plan of Treatment Not on file documented as of this encounter Procedures Procedure Name Priority Date/Time Associated Diagnosis Comments CBC W/AUTO DIFFERENTIAL Routine 08/19/2013 8:06 AM EST COMPREHENSIVE METABOLIC PANEL/FASTING Routine 08/19/2013 8:06 AM EST LIPID PROFILE (PREP L2) Routine 08/19/2013 8:06 AM EST documented in this encounter Results * (ABNORMAL) Lipid Profile (Prep L2) (08/19/2013 8:06 AM EST) Triglycerides 136(H) 35 - 135 MG/DL 08/19/2013 2:57 PM EST [facility] Cholesterol 191 0 - 200 MG/DL 08/19/2013 2:57 PM EST [facility] HDL 63 37 - 92 MG/DL 08/19/2013 2:57 PM EST [facility] LDL (Calculated) 101 50 - 130 MG/DL 08/19/2013 2:57 PM EST [facility] 08/19/2013 8:06 AM EST 08/19/2013 8:07 AM EST [facility] Non LAB BLOOD ORDERABLES [facility] * (ABNORMAL) Comprehensive Metabolic Panel/Fasting (08/19/2013 8:06 AM EST) BUN 18(H) 7 - 17 MG/DL 08/19/2013 2:57 PM EST [facility] Creatinine, Blood 0.6 0.5 - 1.0 MG/DL 08/19/2013 2:57 PM EST [facility] Glomerular Filtration Rate, Estimated >60.0 08/19/2013 2:57 PM [facility] Comment:MDRD in mL min 1.73 sq meters. For Americans, multiply by 1.21. Sodium 143 135 - 145 MMOL/L 08/19/2013 2:57 PM EST [facility] Potassium 4.6 3.5 - 5.5 MMOL/L 08/19/2013 2:57 PM EST [facility] Chloride 104 98 - 107 MMOL/L 08/19/2013 2:57 PM EST [facility] Carbon dioxide 30 24 - 32 MMOL/L 08/19/2013 2:57 PM EST [facility] Glucose, Fasting 105(H) 70 - 99 MG/DL 08/19/2013 2:57 PM EST [facility] Calcium 9.8 8.4 - 10.2 MG/DL 08/19/2013 2:57 PM EST [facility] Total Protein 7.8 6.3 - 8.2 G/DL 08/19/2013 2:57 PM EST [facility] Albumin 4.8 3.5 - 5.0 G/DL 08/19/2013 2:57 PM EST [facility] Alkaline Phosphatase 74 38 - 126 U/L 08/19/2013 2:57 PM EST [facility] AST (SGOT) 31 5 - 40 U/L 08/19/2013 2:57 PM EST [facility] ALT (SGPT) 44 11 - 66 U/L 08/19/2013 2:57 PM EST [facility] Total Bilirubin 0.3 0.2 - 1.3 MG/DL 08/19/2013 2:57 PM EST [facility] 08/19/2013 8:06 AM EST 08/19/2013 8:07 AM EST [facility] Non LAB BLOOD ORDERABLES [facility] * (ABNORMAL) CBC With Auto Differential (08/19/2013 8:06 AM EST) WBC 3.5(L) 4.0 - 10.5 K/UL 08/19/2013 2:06 PM EST [facility] RBC 4.46 4.2 - 5.4 M/UL 08/19/2013 2:06 PM EST [facility] Hemoglobin 13.3 12.5 - 16.0 GM/DL 08/19/2013 2:06 PM EST [facility] Hematocrit 39.3 37 - 47 % 08/19/2013 2:06 PM EST [facility] MCV 88.0 78 - 100 FL 08/19/2013 2:06 PM EST [facility] MCH 29.9 27 - 31 PG 08/19/2013 2:06 PM EST [facility] MCHC 34.0 32 - 36 GM/DL 08/19/2013 2:06 PM EST [facility] RDW 14.1 11.5 - 14.5 % 08/19/2013 2:06 PM EST [facility] Platelets 256 150 - 450 K/UL 08/19/2013 2:06 PM EST [facility] MPV 7.5 6.0 - 9.5 FL 08/19/2013 2:06 PM EST [facility] Neutrophils 50.3 25 - 62 % 08/19/2013 2:06 PM EST [facility] Lymphocytes 38.5 20 - 48 % 08/19/2013 2:06 PM EST [facility] Monocytes 7.8 2 - 12 % 08/19/2013 2:06 PM EST [facility] Eosinophils 2.8 0 - 6 % 08/19/2013 2:06 PM EST [facility] Basophils 0.6 0 - 2 % 08/19/2013 2:06 PM EST [facility] Neutrophils, Absolute 1.7(L) 1.8 - 7.8 K/UL 08/19/2013 2:06 PM EST [facility] Lymphocytes Absolute 1.3 1.0 - 4.8 K/UL 08/19/2013 2:06 PM EST [facility] Monocytes Absolute 0.3 0.0 - 0.8 K/UL 08/19/2013 2:06 PM EST [facility] Eosinophils, Absolute 0.1 0.0 - 0.5 K/UL 08/19/2013 2:06 PM EST [facility] Basophils Absolute 0.0 0.0 - 0.2 K/UL 08/19/2013 2:06 PM EST [facility] 08/19/2013 8:06 AM EST 08/19/2013 8:07 AM EST [facility] Non LAB BLOOD ORDERABLES [facility] documented in this encounter Visit Diagnoses Not on filedocumented in this encounter
--- OUTSIDE RECORDS SUMMARY | 2025-05-05 13:13 | XMS_ITS | Clinical Summary ---
Author Organization [facility] Address [address] [place] [address] Care Team Providers Care Vocational Auto Body Instructor Name Role Phone Quintin Dickson MD Primary Care Provider [phone] Social History Tobacco Use Types Packs/Day Years Used Date Smoking Tobacco: Never Assessed Sex and Gender Information Value Date Recorded Sex Assigned at Not on file Gender Identity Not on file Sexual Orientation Not on file Plan of Treatment Not on file Care Teams Vocational Auto Body Instructor Relationship Specialty Start Date End Date Quintin Dickson MD [address] [place] [address] [phone] PCP - General Internal Medicine 02/17/14
== END ==
LOC: HO.CARD 09:32
PROVIDERS: PCP Internal Medicine; Visit Provider Internal Medicine Cardiovascular Disease
DX: I49.3 Ventricular premature depolarization (principal)
CPT/HCPCS: 93225

== ENCOUNTER → 2025-05-05 09:34 | Outpatient (BNV) | payer MEDICARE, SELFPAY | PROVIDERS: PCP Internal Medicine; Visit Provider Internal Medicine Cardiovascular Disease | DX: I49.3 Ventricular premature depolarization (principal) | CPT/HCPCS: 93227 ==